=== PATIENT | male | born 1955 | race Caucasian/White ===

== ENCOUNTER → 2016-03-17 | Outpatient (REF) | payer MEDICARE ==
[~2016-03-17] MED LIST: /WARF25TA PO; ASCO25TA PO; BACITAB3 PO; BACL-67 PO; BACL10TA2 PO; CALCTAB28 PO; CEFT500T PO; CEPA5.4L2 MT; CEPALOZ MT; CYPR4TA PO; DIAZ2TAB PO; DICL13PA TD; DOCU10CA PO; DULC5TAB PO; ELIQ5TAB PO; EUCECRE3 TOP; FAMO20TA PO; FE G325T PO; FERR325T3 PO; FIBE625T PO; FLOM5CAP PO; FURO40TA2 PO; GABA-283 PO; HEPA100PFS INJ; IBUP600T26 PO; KEFL500C7 PO; LEXA1TAB PO; LISI-542 PO; LOVE1INJ SC; MAGN500T6 PO; MERO1INJ IV; MSIR30TA PO; OXYC20TA21 PO; PANT40TA2 PO; PERC5TAB PO; PERCOCET PO; PRED20TA PO; PROS5TAB PO; ROCE1INJ4 IV; ROXI1TAB2 PO; SENN-23 PO; SENN8.6C PO; SENO8.6T2 PO; SODI0.9S IV; TRIA25CR TOP; TYLE325T5 PO; VALI5TAB PO; VANC1INJ IV; VITMTA PO; ZANA4TAB PO; ZOFR4TAB3 PO; [UNRECOGNIZED DRUG - CODE] IV; [UNRECOGNIZED DRUG - CODE] IVFLUSH; [UNRECOGNIZED DRUG - CODE] PO; [UNRECOGNIZED DRUG - CODE] PO; [UNRECOGNIZED DRUG - OTHER] PO
[2016-03-17 10:11] LABS: BASO % 0.6 % (0.0-1.0); EOS # 0.2 K/mm3 (0.0-0.50); EOS % 1.8 % (0.0-3.0); LARGE UNSTAINED CELL # 0.3 K/mm3 (0.0-0.4); LYMPH % 20.3 % (24.0-44.0); MEAN CORPUSCULAR HEMOGLOBIN 30.6 pg (27.0-33.0); MEAN CORPUSCULAR HGB CONC 34.9 g/dl (32.0-36.5); MEAN CORPUSCULAR VOLUME 87.5 fl (80.0-96.0); MONO # 0.5 K/mm3 (0.0-0.8); MONO % 6.4 % (0.0-5.0); NEUTROPHILS # 5.6 K/mm3 (1.8-7.7); NEUTROPHILS % 66.8 % (36.0-66.0); PLATELET COUNT, AUTOMATED 217 k/mm3 (150-450); RED CELL DISTRIBUTION WIDTH 13.8 % (11.5-14.5); WHITE BLOOD COUNT 8.4 K/mm3 (4.0-10.0)
[2016-03-17 11:11] LABS: ERYTHROCYTE SEDIMENTATION RATE 41 mm/hr (0-20)
== END ==
LOC: SKLABADC 08:53
PROVIDERS: ATTEND Physician Assistant Medical
DX: M25.552 Pain in left hip (principal); E78.2 Mixed hyperlipidemia; N18.3 Chronic kidney disease, stage 3 (moderate); I12.9 Hypertensive chronic kidney disease with stage 1 through stage 4 chronic kidney disease, or unspecified chronic kidney disease; D50.9 Iron deficiency anemia, unspecified; E55.9 Vitamin D deficiency, unspecified

== ENCOUNTER → 2016-03-27 | Outpatient (REF) | payer MEDICARE ==
[2016-03-27 12:04] LABS: ALBUMIN 3.6 GM/DL (3.2-5.2); ALBUMIN/GLOBULIN RATIO 0.78 (1.00-1.93); ALKALINE PHOSPHATASE 117 U/L (45-117); ALT/SGPT 37 U/L (12-78); ANION GAP 7 MEQ/L (8-16); AST/SGOT 19 U/L (15-37); BILIRUBIN,TOTAL 0.5 MG/DL (0.2-1.0); BLOOD UREA NITROGEN 21 MG/DL (7-18); CALCIUM LEVEL 9.1 MG/DL (8.8-10.2); CARBON DIOXIDE LEVEL 26 MEQ/L (21-32); CHLORIDE LEVEL 105 MEQ/L (98-107); CREATININE FOR GFR 1.06 MG/DL (0.70-1.30); GLOMERULAR FILTRATION RATE > 60.0 (>49); GLUCOSE, FASTING 96 MG/DL (80-110); POTASSIUM SERUM 4.3 MEQ/L (3.5-5.1); SODIUM LEVEL 138 MEQ/L (136-145); TOTAL PROTEIN 8.2 GM/DL (6.4-8.2)
== END ==
LOC: SKLABADC 10:23
PROVIDERS: ATTEND Physician Assistant Medical
DX: N18.3 Chronic kidney disease, stage 3 (moderate) (principal)

== ENCOUNTER → 2016-04-01 | Outpatient (CLI) | payer MEDICARE ==
[~2016-04-01] MED LIST changes: -CEFT500T PO; +CEFT500T3 PO; +CEPA1LOZ5 MT; -CEPALOZ MT
== END ==
LOC: M RAD 13:31
PROVIDERS: ATTEND Physician Assistant Medical
DX: M25.552 Pain in left hip (principal)

== ENCOUNTER → 2016-07-25 | Outpatient (REF) | payer MEDICARE, MEDICAID ==
[~2016-07-25] MED LIST changes: +ATOR1TAB21; +CLEO300C2 PO; +VITA200015; +[UNRECOGNIZED DRUG - CODE] IV; -[UNRECOGNIZED DRUG - CODE] IV
[2016-07-25 13:11] LABS: BASO # 0.1 K/mm3 (0.0-0.2); EOS # 0.2 K/mm3 (0.0-0.50); EOS % 2.5 % (0.0-3.0); LARGE UNSTAINED CELL # 0.3 K/mm3 (0.0-0.4); LARGE UNSTAINED CELL % 4.5 % (0.0-4.0); LYMPH # 1.8 K/mm3 (1.5-4.5); LYMPH % 21.2 % (24.0-44.0); MEAN CORPUSCULAR HEMOGLOBIN 30.6 pg (27.0-33.0); MEAN CORPUSCULAR HGB CONC 34.4 g/dl (32.0-36.5); MONO # 0.8 K/mm3 (0.0-0.8); MONO % 10.8 % (0.0-5.0); NEUTROPHILS # 4.2 K/mm3 (1.8-7.7); PLATELET COUNT, AUTOMATED 227 k/mm3 (150-450); RED CELL DISTRIBUTION WIDTH 13.5 % (11.5-14.5)
[2016-07-25 13:42] LABS: VITAMIN B12 LEVEL 867 PG/ML (247-911)
[2016-07-25 13:48] LABS: ALBUMIN 3.6 GM/DL (3.2-5.2); ALKALINE PHOSPHATASE 107 U/L (45-117); ALT/SGPT 41 U/L (12-78); ANION GAP 8 MEQ/L (8-16); AST/SGOT 24 U/L (15-37); BILIRUBIN,TOTAL 0.6 MG/DL (0.2-1.0); BLOOD UREA NITROGEN 24 MG/DL (7-18); CALCIUM LEVEL 8.7 MG/DL (8.8-10.2); CARBON DIOXIDE LEVEL 26 MEQ/L (21-32); CHLORIDE LEVEL 104 MEQ/L (98-107); CHOLESTEROL LEVEL 126 MG/DL (<200); CREATININE FOR GFR 1.07 MG/DL (0.70-1.30); GLOMERULAR FILTRATION RATE > 60.0 (>49); GLUCOSE, FASTING 94 MG/DL (80-110); MAGNESIUM LEVEL 2.3 MG/DL (1.8-2.4); POTASSIUM SERUM 4.1 MEQ/L (3.5-5.1); SODIUM LEVEL 138 MEQ/L (136-145); TOTAL PROTEIN 8.1 GM/DL (6.4-8.2); TRIGLYCERIDES LEVEL 109 MG/DL (<150)
== END ==
LOC: M SFHCPLAZ 10:57
PROVIDERS: ATTEND Family Medicine
DX: N18.3 Chronic kidney disease, stage 3 (moderate) (principal); E78.2 Mixed hyperlipidemia; E55.9 Vitamin D deficiency, unspecified; N40.1 Benign prostatic hyperplasia with lower urinary tract symptoms; N31.9 Neuromuscular dysfunction of bladder, unspecified; R33.9 Retention of urine, unspecified
CPT/HCPCS: 36415; 80053; 80061; 82306; 82550; 82607; 83735; 83970; 85025; G0103; G0463

== ENCOUNTER 2016-08-09 12:59 | Emergency (ER) | payer MEDICARE, MEDICAID ==
[~2016-08-09] VITALS: Ht 177.8 cm; Wt 134.3 kg
[~2016-08-09 12:59] MED LIST changes: -ATOR1TAB21; -CLEO300C2 PO; -VITA200015
[2016-08-09 13:00] VITALS: BP 122/77
[2016-08-09] MEDS ORDERED: VITA200015 (13:10)
[2016-08-09] MEDS ORDERED: ATOR1TAB21 (13:10)
[2016-08-09] MEDS ORDERED: CLEO300C2 PO (13:23)
== END 2016-08-09 13:49 | disposition home or self-care (01) ==
LOC: M ED 13:29
DX: L03.116 Cellulitis of left lower limb (principal); G43.909 Migraine, unspecified, not intractable, without status migrainosus; Z87.891 Personal history of nicotine dependence; Z88.5 Allergy status to narcotic agent; Z79.899 Other long term (current) drug therapy; Z79.01 Long term (current) use of anticoagulants

== ENCOUNTER 2016-10-16 09:18 | Emergency (ER) | payer MEDICARE, MEDICAID ==
[~2016-10-16] VITALS: Ht 177.8 cm; Wt 136.8 kg
[~2016-10-16 09:18] MED LIST changes: +ATOR1TAB21; +BACITAB PO; -BACITAB3 PO; -BACL-67 PO; +BACL1TAB9 PO; +CLEO300C2 PO; +IBUP-1022 PO; -IBUP600T26 PO; +KEFL500C17 PO; -KEFL500C7 PO; -OXYC20TA21 PO; +OXYC20TA40 PO; -SENO8.6T2 PO; +SENO8.6T5 PO; +VITA200015
[2016-10-16] MEDS ORDERED: FERR1TAB8 (09:30)
[2016-10-16] MEDS ORDERED: DIAZ5TAB (09:30)
--- NOTE | 2016-10-16 11:07 | REP ---
Scrotal ultrasound: 10/16/2016. Clinical history: Pain and swelling right testis. Evaluate for torsion. Findings: No prior study. Sonographic evaluation shows the right testis 3 x 2.7 x 2.1 cm with a calculated volume of 9 mL. Left testis 3.6 x 2.4 x 2.4 cm with a calculated volume of 11 mL . Within the right testis is a 9 x 7 x 7 mm cyst. There is some scattered echogenic foci representing testicular microlithiasis with a small cluster of calcifications. The left testis shows a septated cyst 7 x 4 x 3 mm and adjacent to it is another cyst 4 x 3 x 3 mm. There are scattered testicular echogenic foci representing microlithiasis. There is another cluster of microcalcifications in the mid portion of that left testis. Epididymal head has a mL diameter of 28 mm on the right with epididymal head cyst measuring 9 and 7 mm and appearance of some hyperemia. The left epididymal head has a mL diameter of 14 mm with 4 mm epididymal head cyst. The epididymis, body and tail is also enlarged on both sides and heterogeneous in echogenicity some increased color within. Doppler shows resistive index of 0.55 on the right and 0.37 on the left. No definite hydrocele or varicocele. Impression: 1. Findings most consistent with bilateral epididymitis with epididymal cysts seen on the right, 9 and 7 mm size and on the left at 4 mm size in each epididymal head respectively. 2. No evidence of torsion with Doppler tracing showing normal flow to each testis nor evidence of hydrocele. No varicocele. 3. Testicular microlithiasis is noted. The testicular cysts are seen. There has been some association of testicular microlithiasis with increased risk for testicular malignancy. Follow-up ultrasound in 6-12 months would be recommended. Signed by Josh Conte MD 10/16/2016 06:28 P
[2016-10-16] MEDS ORDERED: PERCOCET 5MG/325MG TAB PO ONE (11:15)
[2016-10-16] MEDS ORDERED: ONDANSETRON 4 MG ORAL DISINTEGRATING TAB (S0181) PO ONE (12:15)
[2016-10-16 12:27] LABS: MEAN CORPUSCULAR HEMOGLOBIN 31.2 pg (27.0-33.0); MEAN CORPUSCULAR HGB CONC 35.3 g/dl (32.0-36.5); MEAN CORPUSCULAR VOLUME 88.5 fl (80.0-96.0); RED CELL DISTRIBUTION WIDTH 13.4 % (11.5-14.5); WHITE BLOOD COUNT 14.2 K/mm3 (4.0-10.0)
[2016-10-16 12:51] LABS: ANION GAP 10 MEQ/L (8-16); BLOOD UREA NITROGEN 19 MG/DL (7-18); CALCIUM LEVEL 9.3 MG/DL (8.8-10.2); CARBON DIOXIDE LEVEL 24 MEQ/L (21-32); CHLORIDE LEVEL 103 MEQ/L (98-107); CREATININE FOR GFR 1.02 MG/DL (0.70-1.30); GLOMERULAR FILTRATION RATE > 60.0 (>49); GLUCOSE, FASTING 98 MG/DL (80-110); POTASSIUM SERUM 4.2 MEQ/L (3.5-5.1); SODIUM LEVEL 137 MEQ/L (136-145)
[2016-10-16 13:03] VITALS: BP 156/82
[2016-10-16] MEDS ORDERED: CIPROFLOXACIN 500 MG TAB PO ONE (13:30)
[2016-10-16] MEDS ORDERED: PERC5TAB12 PO (13:32)
[2016-10-16] MEDS ORDERED: CIPR-249 PO (13:33)
== END 2016-10-16 13:40 | disposition home or self-care (01) ==
LOC: M ED 09:18
DX: N45.1 Epididymitis (principal); N50.3 Cyst of epididymis; B96.29 Other Escherichia coli [E. coli] as the cause of diseases classified elsewhere; I25.10 Atherosclerotic heart disease of native coronary artery without angina pectoris; I10 Essential (primary) hypertension; E78.00 Pure hypercholesterolemia, unspecified; G43.909 Migraine, unspecified, not intractable, without status migrainosus; G82.20 Paraplegia, unspecified; Z79.899 Other long term (current) drug therapy; Z88.5 Allergy status to narcotic agent

== ENCOUNTER → 2016-11-14 | Outpatient (REF) | payer MEDICARE, MEDICAID ==
[~2016-11-14] MED LIST changes: +CIPR-249 PO; +DIAZ5TAB; +FERR1TAB8; +PERC5TAB12 PO
== END ==
LOC: M SMT 10:37
PROVIDERS: ATTEND Nurse Practitioner Women's Health
DX: N39.0 Urinary tract infection, site not specified (principal)
CPT/HCPCS: 51798; 81001; 87086; G0463

== ENCOUNTER → 2016-11-18 | Outpatient (REF) | payer MEDICARE, MEDICAID ==
[2016-11-18 10:55] LABS: BASO % 0.4 % (0.0-1.0); EOS # 0.1 K/mm3 (0.0-0.50); EOS % 2.1 % (0.0-3.0); LARGE UNSTAINED CELL # 0.3 K/mm3 (0.0-0.4); LARGE UNSTAINED CELL % 4.2 % (0.0-4.0); LYMPH # 1.9 K/mm3 (1.5-4.5); LYMPH % 26.8 % (24.0-44.0); MEAN CORPUSCULAR HEMOGLOBIN 32.7 pg (27.0-33.0); MEAN CORPUSCULAR VOLUME 88.3 fl (80.0-96.0); MONO # 0.5 K/mm3 (0.0-0.8); MONO % 8.7 % (0.0-5.0); NEUTROPHILS # 3.5 K/mm3 (1.8-7.7); NEUTROPHILS % 57.9 % (36.0-66.0); PLATELET COUNT, AUTOMATED 156 k/mm3 (150-450); RED CELL DISTRIBUTION WIDTH 17.1 % (11.5-14.5)
[2016-11-18 10:56] LABS: MEAN CORPUSCULAR HGB CONC 37.1 g/dl (32.0-36.5)
[2016-11-18 11:21] LABS: ALBUMIN 3.5 GM/DL (3.2-5.2); ALBUMIN/GLOBULIN RATIO 0.69 (1.00-1.93); ALKALINE PHOSPHATASE 102 U/L (45-117); ALT/SGPT 33 U/L (12-78); ANION GAP 10 MEQ/L (8-16); AST/SGOT 18 U/L (15-37); BILIRUBIN,TOTAL 0.6 MG/DL (0.2-1.0); BLOOD UREA NITROGEN 18 MG/DL (7-18); CALCIUM LEVEL 8.7 MG/DL (8.8-10.2); CARBON DIOXIDE LEVEL 25 MEQ/L (21-32); CHLORIDE LEVEL 106 MEQ/L (98-107); CHOLESTEROL LEVEL 138 MG/DL (<200); CREATININE FOR GFR 0.95 MG/DL (0.70-1.30); GLOMERULAR FILTRATION RATE > 60.0 (>49); GLUCOSE, FASTING 89 MG/DL (80-110); MAGNESIUM LEVEL 2.2 MG/DL (1.8-2.4); POTASSIUM SERUM 4.6 MEQ/L (3.5-5.1); SODIUM LEVEL 141 MEQ/L (136-145); TOTAL PROTEIN 8.6 GM/DL (6.4-8.2); TRIGLYCERIDES LEVEL 123 MG/DL (<150)
[2016-11-18 12:44] LABS: VITAMIN B12 LEVEL 718 PG/ML (247-911)
== END ==
LOC: SKLABADC 09:05
PROVIDERS: ATTEND Family Medicine
DX: N18.3 Chronic kidney disease, stage 3 (moderate) (principal); E78.2 Mixed hyperlipidemia; E55.9 Vitamin D deficiency, unspecified; N40.1 Benign prostatic hyperplasia with lower urinary tract symptoms

== ENCOUNTER → 2017-03-19 | Outpatient (REF) | payer MEDICARE, MEDICAID ==
[2017-03-19 10:48] LABS: BASO % 0.4 % (0.0-1.0); EOS # 0.2 10^3/uL (0.0-0.50); EOS % 2.5 % (0.0-3.0); HEMATOCRIT 39.7 % (42.0-52.0); HEMOGLOBIN 14.3 g/dl (14.0-18.0); IMMATURE GRANULOCYTE % 0.4 % (0-0); LYMPH # 1.9 10^3/uL (1.5-4.5); LYMPH % 24.2 % (24.0-44.0); MEAN CORPUSCULAR HEMOGLOBIN 32.5 pg (27.0-33.0); MEAN CORPUSCULAR VOLUME 90.2 fl (80.0-96.0); MONO # 0.5 10^3/uL (0.0-0.8); MONO % 6.9 % (0.0-5.0); NEUTROPHILS # 5.1 10^3/uL (1.8-7.7); NEUTROPHILS % 65.6 % (36.0-66.0); PLATELET COUNT, AUTOMATED 206 10^3/uL (150-450); RED CELL DISTRIBUTION WIDTH 13.2 % (11.5-14.5); WHITE BLOOD COUNT 7.7 10^3/uL (4.0-10.0)
[2017-03-19 11:17] LABS: ALBUMIN 3.5 GM/DL (3.2-5.2); ALBUMIN/GLOBULIN RATIO 0.69 (1.00-1.93); ALKALINE PHOSPHATASE 104 U/L (45-117); ALT/SGPT 37 U/L (12-78); ANION GAP 6 MEQ/L (8-16); AST/SGOT 20 U/L (7-37); BILIRUBIN,TOTAL 0.6 MG/DL (0.2-1.0); BLOOD UREA NITROGEN 21 MG/DL (7-18); CALCIUM LEVEL 8.8 MG/DL (8.8-10.2); CARBON DIOXIDE LEVEL 26 MEQ/L (21-32); CHLORIDE LEVEL 104 MEQ/L (98-107); CREATININE FOR GFR 1.05 MG/DL (0.70-1.30); ESTIMATED AVERAGE GLUCOSE 108 MG/DL (60-110); FERRITIN 143 NG/ML (26-388); FREE T4 0.97 NG/DL (0.76-1.46); GLOMERULAR FILTRATION RATE > 60.0 (>49); GLUCOSE, FASTING 135 MG/DL (80-110); HEMOGLOBIN A1c 5.4 %; IRON (FE) 74 UG/DL (65-175); PERCENT SATURATION 26.4 % (19.7-50.0); POTASSIUM SERUM 4.5 MEQ/L (3.5-5.1); SODIUM LEVEL 136 MEQ/L (136-145); TOTAL IRON BINDING CAPACITY 280 UG/DL (250-450); TOTAL PROTEIN 8.6 GM/DL (6.4-8.2)
[2017-03-20 11:54] LABS: HEPATITIS C VIRUS ABY INDEX 0.2 INDEX (<0.8)
== END ==
LOC: SKLABADC 09:28
DX: D50.9 Iron deficiency anemia, unspecified (principal); I10 Essential (primary) hypertension; N40.1 Benign prostatic hyperplasia with lower urinary tract symptoms
CPT/HCPCS: 83550

== ENCOUNTER → 2017-04-28 | Outpatient (CLI) | payer MEDICARE, MEDICAID | LOC: M RAD 13:03 | DX: N44.2 Benign cyst of testis (principal); N50.89 Other specified disorders of the male genital organs; N45.1 Epididymitis | CPT/HCPCS: 76870 ==

== ENCOUNTER → 2017-07-17 | Outpatient (REF) | payer MEDICARE, MEDICAID ==
[2017-07-17 10:44] LABS: BASO % 0.5 % (0.0-1.0); EOS # 0.2 10^3/uL (0.0-0.50); EOS % 2.8 % (0.0-3.0); HEMATOCRIT 41.1 % (42.0-52.0); HEMOGLOBIN 14.3 g/dl (13.5-17.5); IMMATURE GRANULOCYTE % 0.4 % (0-3.0); LYMPH # 1.8 10^3/uL (1.5-4.5); LYMPH % 23.2 % (24.0-44.0); MEAN CORPUSCULAR HEMOGLOBIN 31.1 pg (27.0-33.0); MEAN CORPUSCULAR HGB CONC 34.8 g/dl (32.0-36.5); MEAN CORPUSCULAR VOLUME 89.3 fl (80.0-96.0); MONO % 12.4 % (0.0-5.0); NEUTROPHILS # 4.8 10^3/uL (1.8-7.7); NEUTROPHILS % 60.7 % (36.0-66.0); PLATELET COUNT, AUTOMATED 205 10^3/uL (150-450); RED CELL DISTRIBUTION WIDTH 13.2 % (11.5-14.5); RETIC HEMOGLOBIN EQUIVALENT 34.9 pg (24-36); RETICULOCYTE # 44.2 10^9/L (17-77); WHITE BLOOD COUNT 7.8 10^3/uL (4.0-10.0)
[2017-07-17 11:14] LABS: ALBUMIN 3.8 GM/DL (3.2-5.2); ALBUMIN/GLOBULIN RATIO 0.75 (1.00-1.93); ALKALINE PHOSPHATASE 111 U/L (45-117); ALT/SGPT 46 U/L (12-78); ANION GAP 7 MEQ/L (8-16); AST/SGOT 22 U/L (7-37); BILIRUBIN,TOTAL 0.6 MG/DL (0.2-1.0); BLOOD UREA NITROGEN 21 MG/DL (7-18); C REACTIVE PROTEIN QUANTITATIV 0.34 MG/DL (0.00-0.30); CALCIUM LEVEL 9.2 MG/DL (8.8-10.2); CARBON DIOXIDE LEVEL 27 MEQ/L (21-32); CHLORIDE LEVEL 104 MEQ/L (98-107); CHOLESTEROL LEVEL 135 MG/DL (<200); CHOLESTEROL RISK RATIO 3.857 (<5); CPK CREATINE PHOSPHOKINASE 82 U/L (39-308); CREATININE FOR GFR 1.05 MG/DL (0.70-1.30); GLOMERULAR FILTRATION RATE > 60.0 (>49); GLUCOSE, FASTING 93 MG/DL (70-100); HDL CHOLESTEROL 35 MG/DL (>40); LDL CHOLESTEROL 81.2 MG/DL (<100); MAGNESIUM LEVEL 2.3 MG/DL (1.8-2.4); NON-HDL-C 100 MG/DL; POTASSIUM SERUM 4.6 MEQ/L (3.5-5.1); SODIUM LEVEL 138 MEQ/L (136-145); TOTAL PROTEIN 8.9 GM/DL (6.4-8.2); TRIGLYCERIDES LEVEL 94 MG/DL (<150)
== END ==
LOC: SKLABADC 09:07
DX: D50.9 Iron deficiency anemia, unspecified (principal); E78.2 Mixed hyperlipidemia; I10 Essential (primary) hypertension
CPT/HCPCS: 82550

== ENCOUNTER → 2017-11-20 | Outpatient (REF) | payer MEDICARE, MEDICAID ==
[2017-11-20 12:16] LABS: BASO % 0.4 % (0.0-1.0); EOS # 0.3 10^3/uL (0.0-0.50); EOS % 3.2 % (0.0-3.0); HEMATOCRIT 42.4 % (42.0-52.0); HEMOGLOBIN 14.5 g/dl (13.5-17.5); IMMATURE GRANULOCYTE % 0.5 % (0-3.0); LYMPH # 1.9 10^3/uL (1.5-4.5); LYMPH % 22.8 % (24.0-44.0); MEAN CORPUSCULAR HEMOGLOBIN 30.9 pg (27.0-33.0); MEAN CORPUSCULAR HGB CONC 34.2 g/dl (32.0-36.5); MEAN CORPUSCULAR VOLUME 90.4 fl (80.0-96.0); MONO # 0.9 10^3/uL (0.0-0.8); MONO % 10.3 % (0.0-5.0); NEUTROPHILS # 5.4 10^3/uL (1.8-7.7); NEUTROPHILS % 62.8 % (36.0-66.0); PLATELET COUNT, AUTOMATED 167 10^3/uL (150-450); RED BLOOD COUNT 4.69 10^6/uL (4.30-6.10); RED CELL DISTRIBUTION WIDTH 13.3 % (11.5-14.5); WHITE BLOOD COUNT 8.5 10^3/uL (4.0-10.0)
[2017-11-20 12:54] LABS: TOTAL 25(OH) VITAMIN D 45.7 NG/ML (30.0-100.0)
[2017-11-20 12:55] LABS: PTH INTACT 46.7 PG/ML (18.5-88.0)
[2017-11-20 12:59] LABS: ALBUMIN 3.6 GM/DL (3.2-5.2); ALBUMIN/GLOBULIN RATIO 0.72 (1.00-1.93); ALKALINE PHOSPHATASE 109 U/L (45-117); ALT/SGPT 39 U/L (12-78); ANION GAP 8 MEQ/L (8-16); AST/SGOT 21 U/L (7-37); BILIRUBIN,TOTAL 0.6 MG/DL (0.2-1.0); BLOOD UREA NITROGEN 22 MG/DL (7-18); CALCIUM LEVEL 8.8 MG/DL (8.8-10.2); CARBON DIOXIDE LEVEL 24 MEQ/L (21-32); CHLORIDE LEVEL 107 MEQ/L (98-107); CREATININE FOR GFR 0.98 MG/DL (0.70-1.30); FREE T4 0.93 NG/DL (0.76-1.46); GLOMERULAR FILTRATION RATE > 60.0 (>49); GLUCOSE, FASTING 80 MG/DL (70-100); POTASSIUM SERUM 4.4 MEQ/L (3.5-5.1); PROSTATIC SPECIFIC AG MONITOR 0.25 NG/ML (< 4.0); SODIUM LEVEL 139 MEQ/L (136-145); TOTAL PROTEIN 8.6 GM/DL (6.4-8.2)
== END ==
LOC: SKLABADC 08:07
DX: D50.9 Iron deficiency anemia, unspecified (principal); E55.9 Vitamin D deficiency, unspecified; E78.2 Mixed hyperlipidemia; N40.1 Benign prostatic hyperplasia with lower urinary tract symptoms
CPT/HCPCS: 84443

== ENCOUNTER → 2018-03-31 | Outpatient (REF) | payer MEDICARE, MEDICAID ==
[~2018-03-31] MED LIST changes: +FLOM0.4C39 PO; -FLOM5CAP PO; -GABA-283 PO; +GABA-845 PO; -PANT40TA2 PO; +PANT40TA3 PO; -ROCE1INJ4 IV; +ROCE1INJ6 IV; +ZOFR4TAB14 PO; -ZOFR4TAB3 PO
[2018-03-31 10:12] LABS: BASO % 0.4 % (0.0-1.0); EOS # 0.2 10^3/uL (0.0-0.50); EOS % 2.6 % (0.0-3.0); HEMATOCRIT 40.9 % (42.0-52.0); LYMPH # 1.8 10^3/uL (1.5-4.5); LYMPH % 24.9 % (24.0-44.0); MEAN CORPUSCULAR HEMOGLOBIN 30.4 pg (27.0-33.0); MEAN CORPUSCULAR VOLUME 88.9 fl (80.0-96.0); NEUTROPHILS # 4.3 10^3/uL (1.8-7.7); NEUTROPHILS % 58.6 % (36.0-66.0); PLATELET COUNT, AUTOMATED 200 10^3/uL (150-450); WHITE BLOOD COUNT 7.3 10^3/uL (4.0-10.0)
[2018-03-31 10:22] LABS: MEAN CORPUSCULAR HGB CONC 34.2 g/dl (32.0-36.5)
[2018-03-31 10:26] LABS: ALBUMIN 3.6 GM/DL (3.2-5.2); ALT/SGPT 35 U/L (12-78); BILIRUBIN,TOTAL 0.5 MG/DL (0.2-1.0); BLOOD UREA NITROGEN 19 MG/DL (7-18); CALCIUM LEVEL 8.9 MG/DL (8.8-10.2); CARBON DIOXIDE LEVEL 26 MEQ/L (21-32); CHLORIDE LEVEL 103 MEQ/L (98-107); CREATININE FOR GFR 0.98 MG/DL (0.70-1.30); FREE T4 1.04 NG/DL (0.76-1.46); GLOMERULAR FILTRATION RATE > 60.0 (>49); GLUCOSE, FASTING 91 MG/DL (70-100); POTASSIUM SERUM 4.3 MEQ/L (3.5-5.1); PROSTATIC SPECIFIC AG MONITOR 0.21 NG/ML (< 4.00); SODIUM LEVEL 137 MEQ/L (136-145); TOTAL PROTEIN 8.4 GM/DL (6.4-8.2)
[2018-03-31 10:37] LABS: PTH INTACT 50.4 PG/ML (18.5-88.0); TOTAL 25(OH) VITAMIN D 40.7 NG/ML (30.0-100.0)
== END ==
LOC: SKLABADC 08:47
PROVIDERS: ATTEND Family Medicine
DX: D50.9 Iron deficiency anemia, unspecified (principal); E55.9 Vitamin D deficiency, unspecified; E78.2 Mixed hyperlipidemia; N40.1 Benign prostatic hyperplasia with lower urinary tract symptoms

== ENCOUNTER → 2018-09-02 | Outpatient (REF) | payer MEDICARE, MEDICAID ==
[~2018-09-02] MED LIST changes: -/WARF25TA PO; -ASCO25TA PO; +BACT800T5 PO; -CEPA1LOZ5 MT; +CEPALOZ8 MT; +COUM1TAB18 PO; -CYPR4TA PO; +CYPR4TAB PO; +IRBE150T12 PO; +VITA1TAB23 PO; +VITA2000 PO
[2018-09-02 15:56] LABS: BASO % 0.4 % (0.0-1.0); EOS # 0.2 10^3/uL (0.0-0.50); EOS % 2.4 % (0.0-3.0); HEMATOCRIT 37.9 % (42.0-52.0); HEMOGLOBIN 13.4 g/dl (13.5-17.5); MEAN CORPUSCULAR HEMOGLOBIN 32.2 pg (27.0-33.0); MEAN CORPUSCULAR HGB CONC 35.4 g/dl (32.0-36.5); MEAN CORPUSCULAR VOLUME 91.1 fl (80.0-96.0); MONO # 1.3 10^3/uL (0.0-0.8); MONO % 16.6 % (0.0-5.0); NEUTROPHILS # 4.4 10^3/uL (1.8-7.7); NEUTROPHILS % 55.1 % (36.0-66.0); PLATELET COUNT, AUTOMATED 199 10^3/uL (150-450); RED BLOOD COUNT 4.16 10^6/uL (4.30-6.10); WHITE BLOOD COUNT 7.9 10^3/uL (4.0-10.0)
[2018-09-02 16:06] LABS: ALBUMIN 3.5 GM/DL (3.2-5.2); ALT/SGPT 34 U/L (12-78); BILIRUBIN,TOTAL 0.5 MG/DL (0.2-1.0); BLOOD UREA NITROGEN 21 MG/DL (7-18); CALCIUM LEVEL 8.9 MG/DL (8.8-10.2); CARBON DIOXIDE LEVEL 26 MEQ/L (21-32); CHLORIDE LEVEL 104 MEQ/L (98-107); CREATININE FOR GFR 1.02 MG/DL (0.70-1.30); GLOMERULAR FILTRATION RATE > 60.0 (>49); GLUCOSE, FASTING 89 MG/DL (70-100); MAGNESIUM LEVEL 2.4 MG/DL (1.8-2.4); NT-PRO BNP 44 PG/ML (<125); POTASSIUM SERUM 4.3 MEQ/L (3.5-5.1); SODIUM LEVEL 135 MEQ/L (136-145); TOTAL PROTEIN 8.4 GM/DL (6.4-8.2)
[2018-09-02 16:12] LABS: VITAMIN B12 LEVEL 941 PG/ML (247-911)
[2018-09-02 16:14] LABS: HEMOGLOBIN A1c 5.6 %
== END ==
LOC: M SFHCPLAZ 13:22
PROVIDERS: ATTEND Family Medicine
DX: I50.30 Unspecified diastolic (congestive) heart failure (principal); I11.0 Hypertensive heart disease with heart failure; D50.9 Iron deficiency anemia, unspecified
CPT/HCPCS: 36415; 80053; 82607; 83036; 83735; 83880; 85025; 85046; G0463

== ENCOUNTER → 2019-02-15 | Outpatient (REF) | payer MEDICARE, MEDICAID ==
[2019-02-15 16:09] LABS: ALBUMIN 3.6 GM/DL (3.2-5.2); ALT/SGPT 41 U/L (12-78); BILIRUBIN,TOTAL 0.6 MG/DL (0.2-1.0); BLOOD UREA NITROGEN 21 MG/DL (7-18); C REACTIVE PROTEIN QUANTITATIV 0.55 MG/DL (0.00-0.30); CALCIUM LEVEL 8.8 MG/DL (8.8-10.2); CARBON DIOXIDE LEVEL 27 MEQ/L (21-32); CHLORIDE LEVEL 105 MEQ/L (98-107); CHOLESTEROL LEVEL 141 MG/DL (<200); CHOLESTEROL RISK RATIO 3.615 (<5); CPK CREATINE PHOSPHOKINASE 84 U/L (39-308); CREATININE FOR GFR 0.94 MG/DL (0.70-1.30); GLOMERULAR FILTRATION RATE > 60.0 (>49); GLUCOSE, FASTING 81 MG/DL (70-100); HDL CHOLESTEROL 39 MG/DL (>40); LDL CHOLESTEROL 83 MG/DL (<100); NON-HDL-C 102 MG/DL; POTASSIUM SERUM 4.2 MEQ/L (3.5-5.1); SODIUM LEVEL 139 MEQ/L (136-145); TOTAL PROTEIN 8.5 GM/DL (6.4-8.2); TRIGLYCERIDES LEVEL 93 MG/DL (<150)
[2019-02-15 18:05] LABS: PTH INTACT 53.3 PG/ML (18.5-88.0); TOTAL 25(OH) VITAMIN D 42.5 NG/ML (30.0-100.0)
[2019-02-17 12:04] LABS: ALBUMIN 4.15 GM/DL (3.29-5.55); ALBUMIN % 48.8 % (55.8-66.1); ALPHA-1-GLOBULIN % 3.5 % (2.9-4.9); ALPHA-2-GLOBULINS 0.67 GM/DL (0.42-0.99); ALPHA-2-GLOBULINS % 7.9 % (7.1-11.8); BETA-1-GLOBULINS 0.47 GM/DL (0.28-0.60); BETA-1-GLOBULINS % 5.5 % (4.7-7.2); BETA-2-GLOBULINS 0.54 GM/DL (0.19-0.55); BETA-2-GLOBULINS % 6.3 % (3.2-6.5); GAMMA GLOBULINS 2.38 GM/DL (0.65-1.58)
== END ==
LOC: M SFHCPLAZ 13:13
PROVIDERS: ATTEND Family Medicine
DX: E55.9 Vitamin D deficiency, unspecified (principal); N18.3 Chronic kidney disease, stage 3 (moderate); E78.2 Mixed hyperlipidemia; Z23 Encounter for immunization
CPT/HCPCS: 36415; 80053; 80061; 82306; 82550; 83525; 83970; 84165; 86140; 86335; 90682; G0008; G0463

== ENCOUNTER 2019-03-06 15:42 | Emergency (ER) | payer MEDICARE, MEDICAID ==
[~2019-03-06] VITALS: Ht 177.8 cm; Wt 139.6 kg
[~2019-03-06 15:42] MED LIST changes: -BACT800T5 PO; -IRBE150T12 PO; -VITA2000 PO
[2019-03-06] MEDS ORDERED: IRBE150T12 PO (15:53)
[2019-03-06] MEDS ORDERED: VITA2000 PO (15:53)
[2019-03-06 16:40] LABS: BASO % 0.5 % (0.0-1.0); EOS # 0.3 10^3/uL (0.0-0.5); EOS % 2.8 % (0.0-3.0); HEMATOCRIT 41.6 % (42.0-52.0); HEMOGLOBIN 13.9 g/dl (13.5-17.5); LYMPH # 2.4 10^3/uL (1.5-5.0); LYMPH % 27.6 % (24.0-44.0); MEAN CORPUSCULAR HEMOGLOBIN 30.2 pg (27.0-33.0); MEAN CORPUSCULAR HGB CONC 33.4 g/dl (32.0-36.5); MEAN CORPUSCULAR VOLUME 90.2 fl (80.0-96.0); MONO # 1.3 10^3/uL (0.0-0.8); MONO % 14.6 % (0.0-5.0); NEUTROPHILS # 4.8 10^3/uL (1.5-8.5); NEUTROPHILS % 53.9 % (36.0-66.0); PLATELET COUNT, AUTOMATED 217 10^3/uL (150-450); RED BLOOD COUNT 4.61 10^6/uL (4.30-6.10); WHITE BLOOD COUNT 8.8 10^3/uL (4.0-10.0)
[2019-03-06] MEDS ORDERED: BACTRIM 160MG/800MG DS TAB PO ONE (17:00)
[2019-03-06] MEDS ORDERED: BACT800T5 PO (17:01)
[2019-03-06 17:16] VITALS: BP 117/74
== END 2019-03-06 17:16 | disposition home or self-care (01) ==
LOC: M ED 15:42
DX: N30.90 Cystitis, unspecified without hematuria (principal); R31.0 Gross hematuria; I10 Essential (primary) hypertension; M54.9 Dorsalgia, unspecified; N40.0 Benign prostatic hyperplasia without lower urinary tract symptoms; Z88.5 Allergy status to narcotic agent; Z79.899 Other long term (current) drug therapy; Z79.01 Long term (current) use of anticoagulants

== ENCOUNTER → 2019-11-10 | Outpatient (CLI) | payer MEDICARE, MEDICAID ==
[~2019-11-10] MED LIST changes: +BACT800T5 PO; +IRBE150T7 PO; -MERO1INJ IV; +MERO1VIA3 IV; +PANT40TA29 PO; -PANT40TA3 PO; -VITA1TAB23 PO; +VITA200031 PO; +VITA250T20 PO
[2019-11-10 11:39] LABS: BASO % 0.4 % (0.0-1.0); EOS # 0.2 10^3/uL (0.0-0.5); EOS % 2.7 % (0.0-3.0); HEMATOCRIT 37.8 % (42.0-52.0); HEMOGLOBIN 13.8 g/dl (13.5-17.5); LYMPH # 1.6 10^3/uL (1.5-5.0); LYMPH % 23.1 % (24.0-44.0); MEAN CORPUSCULAR HEMOGLOBIN 33.4 pg (27.0-33.0); MEAN CORPUSCULAR HGB CONC 36.5 g/dl (32.0-36.5); MEAN CORPUSCULAR VOLUME 91.5 fl (80.0-96.0); MONO % 13.8 % (0.0-5.0); NEUTROPHILS # 4.2 10^3/uL (1.5-8.5); NEUTROPHILS % 59.6 % (36.0-66.0); PLATELET COUNT, AUTOMATED 193 10^3/uL (150-450); RED BLOOD COUNT 4.13 10^6/uL (4.30-6.10)
[2019-11-10 12:11] LABS: ALBUMIN 3.7 GM/DL (3.2-5.2); ALT/SGPT 35 U/L (12-78); BILIRUBIN,TOTAL 0.7 MG/DL (0.2-1.0); BLOOD UREA NITROGEN 19 MG/DL (7-18); CARBON DIOXIDE LEVEL 27 MEQ/L (21-32); CHLORIDE LEVEL 104 MEQ/L (98-107); CREATININE FOR GFR 1.02 MG/DL (0.70-1.30); FREE T4 0.93 NG/DL (0.76-1.46); GLOMERULAR FILTRATION RATE > 60.0 (>49); GLUCOSE, FASTING 95 MG/DL (70-100); POTASSIUM SERUM 4.2 MEQ/L (3.5-5.1); SODIUM LEVEL 136 MEQ/L (136-145); TOTAL PROTEIN 8.6 GM/DL (6.4-8.2)
[2019-11-10 12:25] LABS: HEMOGLOBIN A1c 5.6 %
== END ==
LOC: M LAB 10:26
PROVIDERS: ATTEND Family Medicine
DX: I50.30 Unspecified diastolic (congestive) heart failure (principal); D50.9 Iron deficiency anemia, unspecified

== ENCOUNTER → 2020-02-06 | Outpatient (CLI) | payer MEDICARE, MEDICAID ==
--- NOTE | 2020-02-06 14:56 | REP ---
INDICATION: HISTORY OF DVT OF LOWER EXTREMITY COMPARISON: 11/14/2014 TECHNIQUE: Brock scale and color Doppler evaluation of the right lower extremity using linear high frequency transducer. FINDINGS: Ultrasound examination of the right lower extremity deep venous structures from the common femoral vein to the popliteal vein demonstrates normal compressibility flow and wave patterns in response to respiration and augmentation. There is no evidence for deep venous thrombosis. IMPRESSION: No evidence for deep venous thrombosis of the right lower extremity. <Electronically signed by Jairon Mercer > 02/06/20 [id number]
== END ==
LOC: M RAD 14:03
PROVIDERS: ATTEND Family Medicine
DX: R90.0 Intracranial space-occupying lesion found on diagnostic imaging of central nervous system (principal); Z86.718 Personal history of other venous thrombosis and embolism

== ENCOUNTER → 2020-03-27 | Outpatient (REF) | payer MEDICARE, MEDICAID ==
[2020-03-27 14:29] LABS: BASO # 0.1 10^3/uL (0.0-0.2); BASO % 0.6 % (0.0-1.0); EOS # 0.2 10^3/uL (0.0-0.5); EOS % 2.2 % (0.0-3.0); HEMATOCRIT 41.9 % (42.0-52.0); HEMOGLOBIN 13.9 g/dl (13.5-17.5); LYMPH # 2.1 10^3/uL (1.5-5.0); LYMPH % 26.3 % (24.0-44.0); MEAN CORPUSCULAR HEMOGLOBIN 30.5 pg (27.0-33.0); MEAN CORPUSCULAR HGB CONC 33.2 g/dl (32.0-36.5); MEAN CORPUSCULAR VOLUME 92.1 fl (80.0-96.0); MONO # 1.1 10^3/uL (0.0-0.8); MONO % 13.8 % (0.0-5.0); NEUTROPHILS # 4.5 10^3/uL (1.5-8.5); NEUTROPHILS % 56.7 % (36.0-66.0); PLATELET COUNT, AUTOMATED 177 10^3/uL (150-450); RED BLOOD COUNT 4.55 10^6/uL (4.30-6.10); WHITE BLOOD COUNT 7.9 10^3/uL (4.0-10.0)
[2020-03-27 16:26] LABS: ALBUMIN 3.8 GM/DL (3.2-5.2); ALT/SGPT 36 U/L (12-78); BILIRUBIN,TOTAL 0.7 MG/DL (0.2-1.0); BLOOD UREA NITROGEN 19 MG/DL (7-18); CALCIUM LEVEL 9.2 MG/DL (8.8-10.2); CARBON DIOXIDE LEVEL 27 MEQ/L (21-32); CHLORIDE LEVEL 102 MEQ/L (98-107); CHOLESTEROL LEVEL 149 MG/DL (<200); CHOLESTEROL RISK RATIO 3.386 (<5); GLOMERULAR FILTRATION RATE > 60.0 (>49); GLUCOSE, FASTING 100 MG/DL (70-100); HDL CHOLESTEROL 44 MG/DL (>40); LDL CHOLESTEROL 88 MG/DL (<100); NON-HDL-C 105 MG/DL; NT-PRO BNP 64 PG/ML (<125); POTASSIUM SERUM 4.1 MEQ/L (3.5-5.1); SODIUM LEVEL 136 MEQ/L (136-145); TOTAL PROTEIN 8.5 GM/DL (6.4-8.2); TRIGLYCERIDES LEVEL 85 MG/DL (<150)
[2020-03-27 16:31] LABS: PTH INTACT 41.7 PG/ML (18.5-88.0); TOTAL 25(OH) VITAMIN D 34.3 NG/ML (30.0-100.0)
== END ==
LOC: M SFHCPLAZ 11:40
PROVIDERS: ATTEND Family Medicine
DX: E78.2 Mixed hyperlipidemia (principal); D50.9 Iron deficiency anemia, unspecified; E55.9 Vitamin D deficiency, unspecified; I50.30 Unspecified diastolic (congestive) heart failure; Z12.5 Encounter for screening for malignant neoplasm of prostate
CPT/HCPCS: 36415; 80053; 80061; 82306; 83880; 83970; 85025; 85046; G0103

== ENCOUNTER 2020-05-29 19:16 | Emergency (ER) | payer MEDICARE, MEDICAID ==
[~2020-05-29] VITALS: Ht 172.7 cm; Wt 146.0 kg
[~2020-05-29 19:16] MED LIST changes: -LISI-542 PO; +LISI-898 PO
[2020-05-29] MEDS ORDERED: CIPR-249 PO (20:50)
[2020-05-29 20:56] VITALS: BP 148/85
== END 2020-05-29 21:03 | disposition home or self-care (01) ==
LOC: M ED 19:16
DX: N39.0 Urinary tract infection, site not specified (principal); E78.5 Hyperlipidemia, unspecified; N40.1 Benign prostatic hyperplasia with lower urinary tract symptoms; I10 Essential (primary) hypertension; Z79.01 Long term (current) use of anticoagulants; Z88.6 Allergy status to analgesic agent

== ENCOUNTER 2020-07-17 12:07 | Emergency (ER) | payer MEDICARE, MEDICAID ==
[~2020-07-17] VITALS: Ht 177.8 cm; Wt 138.6 kg
[2020-07-17 14:20] VITALS: BP 164/88
== END 2020-07-17 14:21 | disposition home or self-care (01) ==
LOC: EDBD 12:07 → M ED 12:07
DX: S00.511A Abrasion of lip, initial encounter (principal); D68.32 Hemorrhagic disorder due to extrinsic circulating anticoagulants; W26.8XXA Contact with other sharp object(s), not elsewhere classified, initial encounter; Y92.9 Unspecified place or not applicable; Y93.9 Activity, unspecified; Y99.9 Unspecified external cause status; G43.909 Migraine, unspecified, not intractable, without status migrainosus; E78.00 Pure hypercholesterolemia, unspecified; I10 Essential (primary) hypertension; K21.9 Gastro-esophageal reflux disease without esophagitis; N40.0 Benign prostatic hyperplasia without lower urinary tract symptoms; M54.9 Dorsalgia, unspecified; E55.9 Vitamin D deficiency, unspecified; Z79.01 Long term (current) use of anticoagulants; Z79.899 Other long term (current) drug therapy; Z88.5 Allergy status to narcotic agent

== ENCOUNTER → 2020-07-26 | Outpatient (REF) | payer MEDICARE, MEDICAID ==
[~2020-07-26] MED LIST changes: +GABA-283 PO; -GABA-845 PO
[2020-07-26 15:56] LABS: HEMOGLOBIN A1c 5.5 %
[2020-07-26 16:05] LABS: BASO % 0.5 % (0.0-1.0); EOS # 0.2 10^3/uL (0.0-0.5); EOS % 2.2 % (0.0-3.0); HEMATOCRIT 42.5 % (42.0-52.0); HEMOGLOBIN 14.2 g/dl (13.5-17.5); LYMPH # 1.6 10^3/uL (1.5-5.0); LYMPH % 21.5 % (24.0-44.0); MEAN CORPUSCULAR HEMOGLOBIN 29.8 pg (27.0-33.0); MEAN CORPUSCULAR VOLUME 89.1 fl (80.0-96.0); NEUTROPHILS # 4.6 10^3/uL (1.5-8.5); NEUTROPHILS % 62.4 % (36.0-66.0); PLATELET COUNT, AUTOMATED 181 10^3/uL (150-450); RED BLOOD COUNT 4.77 10^6/uL (4.30-6.10); WHITE BLOOD COUNT 7.4 10^3/uL (4.0-10.0)
[2020-07-26 16:06] LABS: MEAN CORPUSCULAR HGB CONC 33.4 g/dl (32.0-36.5)
[2020-07-26 16:07] LABS: ALBUMIN 3.7 GM/DL (3.2-5.2); ALT/SGPT 25 U/L (12-78); BILIRUBIN,TOTAL 0.7 MG/DL (0.2-1.0); BLOOD UREA NITROGEN 18 MG/DL (7-18); CALCIUM LEVEL 9.3 MG/DL (8.8-10.2); CARBON DIOXIDE LEVEL 27 MEQ/L (21-32); CHLORIDE LEVEL 103 MEQ/L (98-107); CREATININE FOR GFR 0.99 MG/DL (0.70-1.30); FERRITIN 187 NG/ML (26-388); GLOMERULAR FILTRATION RATE > 60.0 (>49); GLUCOSE, FASTING 93 MG/DL (70-100); MAGNESIUM LEVEL 2.1 MG/DL (1.8-2.4); SODIUM LEVEL 137 MEQ/L (136-145); TOTAL PROTEIN 8.9 GM/DL (6.4-8.2)
== END ==
LOC: M SFHCPLAZ 12:46
PROVIDERS: ATTEND Family Medicine
DX: I11.0 Hypertensive heart disease with heart failure (principal); I50.30 Unspecified diastolic (congestive) heart failure; Z79.899 Other long term (current) drug therapy
CPT/HCPCS: 36415; 80053; 82728; 83036; 83525; 83735; 85025; G0463

== ENCOUNTER 2020-10-12 13:12 | Outpatient (RCR) | payer MEDICARE, MEDICAID | END 2020-10-13 | disposition still patient (30) | LOC: M PT 13:12 | PROVIDERS: ATTEND Family Medicine | DX: G82.22 Paraplegia, incomplete (principal) ==

== ENCOUNTER → 2020-12-26 | Outpatient (CLI) | payer MEDICARE, MEDICAID ==
[2020-12-26 18:08] LABS: HEMOGLOBIN A1c 5.3 %
[2020-12-26 18:20] LABS: BASO # 0.1 10^3/uL (0.0-0.2); BASO % 0.6 % (0.0-1.0); EOS # 0.3 10^3/uL (0.0-0.5); EOS % 3.4 % (0.0-3.0); HEMATOCRIT 40.1 % (42.0-52.0); HEMOGLOBIN 13.5 g/dl (13.5-17.5); LYMPH # 2.2 10^3/uL (1.5-5.0); LYMPH % 27.4 % (24.0-44.0); MEAN CORPUSCULAR HEMOGLOBIN 30.1 pg (27.0-33.0); MEAN CORPUSCULAR HGB CONC 33.7 g/dl (32.0-36.5); MEAN CORPUSCULAR VOLUME 89.3 fl (80.0-96.0); MONO % 12.2 % (2.0-8.0); NEUTROPHILS # 4.4 10^3/uL (1.5-8.5); NEUTROPHILS % 55.9 % (36.0-66.0); PLATELET COUNT, AUTOMATED 176 10^3/uL (150-450); RED BLOOD COUNT 4.49 10^6/uL (4.30-6.10); WHITE BLOOD COUNT 7.9 10^3/uL (4.0-10.0)
[2020-12-26 18:29] LABS: ALBUMIN 3.4 GM/DL (3.2-5.2); ALT/SGPT 22 U/L (12-78); BILIRUBIN,TOTAL 0.9 MG/DL (0.2-1.0); BLOOD UREA NITROGEN 18 MG/DL (7-18); CALCIUM LEVEL 8.9 MG/DL (8.8-10.2); CARBON DIOXIDE LEVEL 27 MEQ/L (21-32); CHLORIDE LEVEL 101 MEQ/L (98-107); CHOLESTEROL LEVEL 134 MG/DL (<200); CHOLESTEROL RISK RATIO 3.828 (<5); CREATININE FOR GFR 1.07 MG/DL (0.70-1.30); FERRITIN 238 NG/ML (26-388); FREE T4 1.01 NG/DL (0.76-1.46); GLOMERULAR FILTRATION RATE > 60.0 (>49); GLUCOSE, FASTING 88 MG/DL (70-100); HDL CHOLESTEROL 35 MG/DL (>40); LDL CHOLESTEROL 81 MG/DL (<100); NON-HDL-C 99 MG/DL; POTASSIUM SERUM 4.3 MEQ/L (3.5-5.1); SODIUM LEVEL 134 MEQ/L (136-145); TOTAL PROTEIN 8.8 GM/DL (6.4-8.2); TRIGLYCERIDES LEVEL 88 MG/DL (<150)
[2020-12-26 18:31] LABS: PTH INTACT 48.3 PG/ML (18.5-88.0); TOTAL 25(OH) VITAMIN D 36.6 NG/ML (30.0-100.0)
== END ==
LOC: M PLALAB 15:24
PROVIDERS: ATTEND Family Medicine
DX: R73.01 Impaired fasting glucose (principal); E55.9 Vitamin D deficiency, unspecified; I10 Essential (primary) hypertension; D50.9 Iron deficiency anemia, unspecified; Z79.899 Other long term (current) drug therapy; G56.01 Carpal tunnel syndrome, right upper limb; I50.30 Unspecified diastolic (congestive) heart failure
CPT/HCPCS: 36415; 80053; 80061; 82306; 82728; 83036; 83970; 84439; 84443; 85025; 90682; G0008; G0463

== ENCOUNTER → 2021-06-03 | Outpatient (CLI) | payer MEDICARE, MEDICAID ==
[~2021-06-03] MED LIST changes: +BENZ1LOZ9 MT; -CEPALOZ8 MT; -LISI-898 PO; +LISI5TAB11 PO
[2021-06-03 17:26] LABS: HEMOGLOBIN A1c 5.6 %
[2021-06-03 17:32] LABS: ALBUMIN 3.7 GM/DL (3.2-5.2); ALT/SGPT 28 U/L (12-78); BILIRUBIN,TOTAL 0.6 MG/DL (0.2-1.0); BLOOD UREA NITROGEN 17 MG/DL (7-18); CALCIUM LEVEL 9.1 MG/DL (8.8-10.2); CARBON DIOXIDE LEVEL 27 MEQ/L (21-32); CHLORIDE LEVEL 101 MEQ/L (98-107); CREATININE FOR GFR 1.05 MG/DL (0.70-1.30); GLOMERULAR FILTRATION RATE > 60.0 (>49); GLUCOSE, FASTING 88 MG/DL (70-100); MAGNESIUM LEVEL 2.2 MG/DL (1.8-2.4); NT-PRO BNP 60 PG/ML (<125); POTASSIUM SERUM 4.2 MEQ/L (3.5-5.1); SODIUM LEVEL 133 MEQ/L (136-145); TOTAL PROTEIN 8.9 GM/DL (6.4-8.2)
[2021-06-03 17:49] LABS: BASO % 0.5 % (0.0-1.0); EOS # 0.2 10^3/uL (0.0-0.5); EOS % 1.8 % (0.0-3.0); HEMATOCRIT 42.5 % (42.0-52.0); HEMOGLOBIN 14.4 g/dl (13.5-17.5); LYMPH # 1.9 10^3/uL (1.5-5.0); LYMPH % 21.8 % (24.0-44.0); MEAN CORPUSCULAR HEMOGLOBIN 29.6 pg (27.0-33.0); MEAN CORPUSCULAR HGB CONC 33.9 g/dl (32.0-36.5); MEAN CORPUSCULAR VOLUME 87.4 fl (80.0-96.0); MONO % 11.6 % (2.0-8.0); NEUTROPHILS # 5.7 10^3/uL (1.5-8.5); NEUTROPHILS % 63.7 % (36.0-66.0); PLATELET COUNT, AUTOMATED 182 10^3/uL (150-450); RED BLOOD COUNT 4.86 10^6/uL (4.30-6.10); WHITE BLOOD COUNT 8.9 10^3/uL (4.0-10.0)
== END ==
LOC: M PLALAB 15:50
PROVIDERS: ATTEND Family Medicine
DX: R73.01 Impaired fasting glucose (principal); I11.0 Hypertensive heart disease with heart failure; I50.30 Unspecified diastolic (congestive) heart failure; Z12.5 Encounter for screening for malignant neoplasm of prostate

== ENCOUNTER → 2021-06-11 | Outpatient (REF) | payer MEDICARE, MEDICAID ==
[~2021-06-11] MED LIST changes: -BENZ1LOZ9 MT; +CEPALOZ8 MT
[2021-06-11 18:22] LABS: APPEARANCE, URINE CLEAR (CLEAR); BACTERIA, URINE AUTO 1+ (NEGATIVE); BILIRUBIN, URINE AUTO NEGATIVE (NEGATIVE); BLOOD, URINE BLOOD 3+ (NEGATIVE); COLOR, URINE YELLOW (YELLOW); GLUCOSE, URINE (UA) AUTO NEGATIVE (NEGATIVE); KETONE, URINE AUTO NEGATIVE (NEGATIVE); LEUKOCYTE ESTERASE, URINE AUTO 3+ (NEGATIVE); NITRITE, URINE AUTO NEGATIVE (NEGATIVE); PROTEIN, URINE AUTO NEGATIVE (NEGATIVE); RBC, URINE AUTO 5 /HPF (0-3); SPECIFIC GRAVITY URINE AUTO 1.003 (1.002-1.035); SQUAMOUS EPITHELIAL CELL UR AU 0 /HPF (0-6); UROBILINOGEN, URINE AUTO 0.2 mg/dL (0.0-2.0); WBC, URINE AUTO 13 /HPF (0-3)
== END ==
LOC: M SFHCPLAZ 16:52
PROVIDERS: ATTEND Physician Assistant
DX: R31.9 Hematuria, unspecified (principal)

== ENCOUNTER → 2021-11-05 | Outpatient (CLI) | payer MEDICARE, MEDICAID ==
[~2021-11-05] MED LIST changes: +BENZ1LOZ9 MT; -CEPALOZ8 MT
[2021-11-05 15:49] LABS: HEMOGLOBIN A1c 5.3 %
[2021-11-05 16:04] LABS: ALBUMIN 3.6 GM/DL (3.2-5.2); ALT/SGPT 24 U/L (12-78); BILIRUBIN,TOTAL 0.6 MG/DL (0.2-1.0); BLOOD UREA NITROGEN 20 MG/DL (7-18); CALCIUM LEVEL 9.5 MG/DL (8.8-10.2); CARBON DIOXIDE LEVEL 24 MEQ/L (21-32); CHLORIDE LEVEL 105 MEQ/L (98-107); CHOLESTEROL LEVEL 126 MG/DL (<200); CHOLESTEROL RISK RATIO 3.405 (<5); CREATININE FOR GFR 0.95 MG/DL (0.70-1.30); GLOMERULAR FILTRATION RATE > 60.0 (>49); GLUCOSE, FASTING 93 MG/DL (70-100); HDL CHOLESTEROL 37 MG/DL (>40); LDL CHOLESTEROL 73 MG/DL (<100); NON-HDL-C 89 MG/DL; NT-PRO BNP 119 PG/ML (<125); POTASSIUM SERUM 3.8 MEQ/L (3.5-5.1); SODIUM LEVEL 135 MEQ/L (136-145); TOTAL PROTEIN 8.2 GM/DL (6.4-8.2); TRIGLYCERIDES LEVEL 82 MG/DL (<150)
[2021-11-05 16:06] LABS: BASO % 0.4 % (0.0-1.0); EOS # 0.2 10^3/uL (0.0-0.5); EOS % 2.9 % (0.0-3.0); HEMATOCRIT 39.8 % (42.0-52.0); HEMOGLOBIN 13.4 g/dl (13.5-17.5); LYMPH # 1.9 10^3/uL (1.5-5.0); MEAN CORPUSCULAR HEMOGLOBIN 29.8 pg (27.0-33.0); MEAN CORPUSCULAR VOLUME 88.4 fl (80.0-96.0); MONO # 1.1 10^3/uL (0.0-0.8); MONO % 15.6 % (2.0-8.0); NEUTROPHILS # 3.7 10^3/uL (1.5-8.5); NEUTROPHILS % 53.7 % (36.0-66.0); PLATELET COUNT, AUTOMATED 153 10^3/uL (150-450); WHITE BLOOD COUNT 6.9 10^3/uL (4.0-10.0)
[2021-11-05 16:08] LABS: MEAN CORPUSCULAR HGB CONC 33.7 g/dl (32.0-36.5)
== END ==
LOC: M PLALAB 13:58
PROVIDERS: ATTEND Physician Assistant Medical
DX: I50.30 Unspecified diastolic (congestive) heart failure (principal)

== ENCOUNTER 2021-11-29 23:32 | Inpatient (IN) | payer MEDICARE, MEDICAID ==
[~2021-11-29] VITALS: Ht 177.8 cm; Wt 132.7 kg
[~2021-11-29 23:32] MED LIST changes: -ATOR1TAB21; +ATOR1TAB21 PO
[2021-11-30 00:19] LABS: BASO % 0.1 % (0.0-1.0); EOS % 0.1 % (0.0-3.0); HEMATOCRIT 38.2 % (42.0-52.0); HEMOGLOBIN 13.6 g/dl (13.5-17.5); LYMPH # 1.1 10^3/uL (1.5-5.0); LYMPH % 6.9 % (24.0-44.0); MEAN CORPUSCULAR HGB CONC 35.6 g/dl (32.0-36.5); MEAN CORPUSCULAR VOLUME 89.9 fl (80.0-96.0); MONO # 1.5 10^3/uL (0.0-0.8); MONO % 9.9 % (2.0-8.0); NEUTROPHILS # 12.6 10^3/uL (1.5-8.5); NEUTROPHILS % 82.7 % (36.0-66.0); PLATELET COUNT, AUTOMATED 171 10^3/uL (150-450); RED BLOOD COUNT 4.25 10^6/uL (4.30-6.10); WHITE BLOOD COUNT 15.2 10^3/uL (4.0-10.0)
[2021-11-30 00:40] LABS: ERYTHROCYTE SEDIMENTATION RATE 50 mm/hr (0-20)
[2021-11-30] MEDS ORDERED: fentaNYL 100 MCG/2 ML INJECTION IV ONE (00:45)
[2021-11-30] MEDS ORDERED: LIDOCAINE 2% 5ML JELLY UROJET TOP ONE (00:45)
[2021-11-30 01:00] LABS: BLOOD UREA NITROGEN 20 MG/DL (7-18); CALCIUM LEVEL 8.8 MG/DL (8.8-10.2); CARBON DIOXIDE LEVEL 25 MEQ/L (21-32); CHLORIDE LEVEL 102 MEQ/L (98-107); CREATININE FOR GFR 1.06 MG/DL (0.70-1.30); GLOMERULAR FILTRATION RATE > 60.0 (>49); GLUCOSE, FASTING 121 MG/DL (70-100); POTASSIUM SERUM 3.9 MEQ/L (3.5-5.1); SODIUM LEVEL 135 MEQ/L (136-145)
[2021-11-30 02:53] LABS: GC DNA AMPLIFICATION NEGATIVE (NEGATIVE)
[2021-11-30] MEDS ORDERED: IRBE150T7 PO (03:17)
[2021-11-30] MEDS ORDERED: FINA5TAB2 PO (03:17)
[2021-11-30] MEDS ORDERED: KETOROLAC 30 MG/ML 1ML VIAL IV PRN (03:20)
[2021-11-30] MEDS ORDERED: HOME MED LIST COMPLETE! XX SCH (03:25)
[2021-11-30] MEDS: PERCOCET 5MG/325MG TAB PO PRN ×2 (03:51→10:01)
[2021-11-30 05:00] LABS: INR 1.43; PARTIAL THROMBOPLASTIN TIME 38.8 SECONDS (25.9-37.0); PROTHROMBIN TIME 17.9 SECONDS (12.7-14.5)
[2021-11-30] MEDS ORDERED: CIPROFLOXACIN 400 MG in IV 1 EA IV SCH (05:00)
[2021-11-30 07:25] LABS: HEMATOCRIT 34.4 % (42.0-52.0); HEMOGLOBIN 12.5 g/dl (13.5-17.5); MEAN CORPUSCULAR HGB CONC 36.3 g/dl (32.0-36.5); MEAN CORPUSCULAR VOLUME 90.8 fl (80.0-96.0); PLATELET COUNT, AUTOMATED 169 10^3/uL (150-450); RED BLOOD COUNT 3.79 10^6/uL (4.30-6.10); WHITE BLOOD COUNT 18.3 10^3/uL (4.0-10.0)
[2021-11-30 07:58] LABS: BLOOD UREA NITROGEN 20 MG/DL (7-18); CALCIUM LEVEL 8.7 MG/DL (8.8-10.2); CARBON DIOXIDE LEVEL 26 MEQ/L (21-32); CHLORIDE LEVEL 101 MEQ/L (98-107); CREATININE FOR GFR 1.08 MG/DL (0.70-1.30); GLOMERULAR FILTRATION RATE > 60.0 (>49); GLUCOSE, FASTING 137 MG/DL (70-100); MAGNESIUM LEVEL 1.8 MG/DL (1.8-2.4); POTASSIUM SERUM 3.7 MEQ/L (3.5-5.1); SODIUM LEVEL 133 MEQ/L (136-145)
[2021-11-30] MEDS: FERROUS SULFATE 325MG TAB PO SCH (10:00)
[2021-11-30] MEDS: PIPERACILLIN/TAZOBACTAM SOD 3.375 GM in D5W MINI-BAG PLUS 50 ML IV SCH ×3 (10:00→20:11)
[2021-11-30] MEDS: ATORVASTATIN 20 MG TAB PO SCH (10:00)
[2021-11-30] MEDS: BACLOFEN 10 MG TAB PO SCH ×4 (10:01→20:12)
[2021-11-30] MEDS: FINASTERIDE 5MG TAB PO SCH (10:01)
[2021-11-30] MEDS: DOCUSATE SODIUM 100MG CAPSULE PO SCH ×2 (10:01→20:11)
[2021-11-30] MEDS: APIXABAN 5 MG TAB (ELIQUIS) PO SCH ×2 (10:01→20:12)
[2021-11-30] MEDS: NS 1,000 ML IV SCH ×2 (11:09→18:26)
[2021-11-30] MEDS: IRBESARTAN 150MG TAB PO SCH ×2 (13:35→20:12)
[2021-11-30 16:00] VITALS: BP 145/84
[2021-11-30 16:05] LABS: BASO % 0.2 % (0.0-1.0); HEMATOCRIT 38.9 % (42.0-52.0); HEMOGLOBIN 13.3 g/dl (13.5-17.5); LYMPH # 1.8 10^3/uL (1.5-5.0); LYMPH % 7.8 % (24.0-44.0); MEAN CORPUSCULAR HEMOGLOBIN 30.6 pg (27.0-33.0); MEAN CORPUSCULAR HGB CONC 34.2 g/dl (32.0-36.5); MEAN CORPUSCULAR VOLUME 89.4 fl (80.0-96.0); NEUTROPHILS % 81.2 % (36.0-66.0); RED BLOOD COUNT 4.35 10^6/uL (4.30-6.10); WHITE BLOOD COUNT 23.4 10^3/uL (4.0-10.0)
[2021-11-30 16:24] LABS: MONO # 2.3 10^3/uL (0.0-0.8); PLATELET COUNT, AUTOMATED 152 10^3/uL (150-450)
[2021-11-30 16:25] LABS: MONO % 9.7 % (2.0-8.0)
[2021-11-30] MEDS: ACETAMINOPHEN TAB 650MG DOSE (2X325MG) PO PRN (16:26)
[2021-11-30] MEDS ORDERED: ISOVUE-370 76% 100ML VIAL As Ordered ONE (16:46)
[2021-11-30] MEDS ORDERED: SODIUM CHLORIDE 0.9% 1000ML IV ONE (17:00)
[2021-11-30] MEDS ORDERED: methocarbamoL 500 MG TAB PO ONE (19:10)
[2021-11-30] MEDS: TAMSULOSIN 0.4 MG CAP PO SCH (20:11)
[2021-11-30] MEDS: FAMOTIDINE 20 MG TAB PO SCH (20:11)
[2021-11-30 20:30] VITALS: BP 124/67
[2021-12-01] MEDS ORDERED: UNRESOLVED CLARIFICATION ENTRY XX SCH (00:01)
[2021-12-01] MEDS: PIPERACILLIN/TAZOBACTAM SOD 3.375 GM in D5W MINI-BAG PLUS 50 ML IV SCH ×4 (02:48→20:31)
[2021-12-01 05:25] VITALS: BP 124/70
[2021-12-01] MEDS: NS 1,000 ML IV SCH (05:36)
[2021-12-01 06:56] LABS: HEMOGLOBIN 12.8 g/dl (13.5-17.5); MEAN CORPUSCULAR HEMOGLOBIN 30.9 pg (27.0-33.0); MEAN CORPUSCULAR HGB CONC 34.6 g/dl (32.0-36.5); MEAN CORPUSCULAR VOLUME 89.4 fl (80.0-96.0); PLATELET COUNT, AUTOMATED 159 10^3/uL (150-450); RED BLOOD COUNT 4.14 10^6/uL (4.30-6.10); WHITE BLOOD COUNT 21.9 10^3/uL (4.0-10.0)
[2021-12-01 07:27] LABS: BLOOD UREA NITROGEN 14 MG/DL (7-18); CALCIUM LEVEL 8.4 MG/DL (8.8-10.2); CARBON DIOXIDE LEVEL 25 MEQ/L (21-32); CHLORIDE LEVEL 101 MEQ/L (98-107); CREATININE FOR GFR 1.01 MG/DL (0.70-1.30); GLOMERULAR FILTRATION RATE > 60.0 (>49); GLUCOSE, FASTING 103 MG/DL (70-100); MAGNESIUM LEVEL 1.9 MG/DL (1.8-2.4); POTASSIUM SERUM 3.4 MEQ/L (3.5-5.1); SODIUM LEVEL 131 MEQ/L (136-145)
[2021-12-01] MEDS: FINASTERIDE 5MG TAB PO SCH (08:56)
[2021-12-01] MEDS: APIXABAN 5 MG TAB (ELIQUIS) PO SCH ×2 (08:56→20:30)
[2021-12-01] MEDS: DOCUSATE SODIUM 100MG CAPSULE PO SCH ×2 (08:56→20:31)
[2021-12-01] MEDS: ATORVASTATIN 20 MG TAB PO SCH (08:56)
[2021-12-01] MEDS: BACLOFEN 10 MG TAB PO SCH ×4 (08:57→20:30)
[2021-12-01] MEDS ORDERED: POTASSIUM CHLORIDE 10MEQ SR TABLET PO ONE (09:00)
[2021-12-01] MEDS: IRBESARTAN 150MG TAB PO SCH ×2 (09:01→20:34)
[2021-12-01 09:24] LABS: OSMOLALITY URINE 589 MOSM/KG (50-1400)
[2021-12-01 09:58] LABS: SODIUM,RANDOM URINE 111 MEQ/L
[2021-12-01] MEDS: SENNA 8.6 MG TAB (SENOKOT) PO SCH (10:11)
[2021-12-01] MEDS: MIRALAX *UNIT DOSE* 17GM PACKET PO SCH (10:11)
[2021-12-01] MEDS: PERCOCET 5MG/325MG TAB PO PRN (13:17)
[2021-12-01 14:00] VITALS: BP 143/86
[2021-12-01] MEDS: ACETAMINOPHEN TAB 650MG DOSE (2X325MG) PO PRN ×2 (15:16→20:31)
[2021-12-01] MEDS: TAMSULOSIN 0.4 MG CAP PO SCH (20:30)
[2021-12-01] MEDS: FAMOTIDINE 20 MG TAB PO SCH (20:31)
[2021-12-01] MEDS ORDERED: ONDANSETRON 4MG 2ML VIAL IV PRN (23:45)
[2021-12-02] MEDS: PIPERACILLIN/TAZOBACTAM SOD 3.375 GM in D5W MINI-BAG PLUS 50 ML IV SCH ×2 (02:10→09:24)
[2021-12-02 06:00] VITALS: BP 140/70
[2021-12-02] MEDS: ACETAMINOPHEN TAB 650MG DOSE (2X325MG) PO PRN (06:03)
[2021-12-02 06:17] LABS: HEMATOCRIT 37.1 % (42.0-52.0); HEMOGLOBIN 12.5 g/dl (13.5-17.5); MEAN CORPUSCULAR HEMOGLOBIN 30.6 pg (27.0-33.0); MEAN CORPUSCULAR HGB CONC 33.7 g/dl (32.0-36.5); MEAN CORPUSCULAR VOLUME 90.9 fl (80.0-96.0); PLATELET COUNT, AUTOMATED 151 10^3/uL (150-450); RED BLOOD COUNT 4.08 10^6/uL (4.30-6.10)
[2021-12-02 06:54] LABS: BLOOD UREA NITROGEN 17 MG/DL (7-18); CALCIUM LEVEL 8.3 MG/DL (8.8-10.2); CARBON DIOXIDE LEVEL 27 MEQ/L (21-32); CHLORIDE LEVEL 103 MEQ/L (98-107); CREATININE FOR GFR 1.06 MG/DL (0.70-1.30); GLOMERULAR FILTRATION RATE > 60.0 (>49); GLUCOSE, FASTING 113 MG/DL (70-100); POTASSIUM SERUM 4.2 MEQ/L (3.5-5.1); SODIUM LEVEL 134 MEQ/L (136-145)
[2021-12-02] MEDS: MIRALAX *UNIT DOSE* 17GM PACKET PO SCH (09:00)
[2021-12-02] MEDS: IRBESARTAN 150MG TAB PO SCH ×2 (09:24→20:13)
[2021-12-02] MEDS: ATORVASTATIN 20 MG TAB PO SCH (09:24)
[2021-12-02] MEDS: FINASTERIDE 5MG TAB PO SCH (09:24)
[2021-12-02] MEDS: SENNA 8.6 MG TAB (SENOKOT) PO SCH (09:24)
[2021-12-02] MEDS: FERROUS SULFATE 325MG TAB PO SCH (09:24)
[2021-12-02] MEDS: APIXABAN 5 MG TAB (ELIQUIS) PO SCH ×2 (09:24→20:12)
[2021-12-02] MEDS: DOCUSATE SODIUM 100MG CAPSULE PO SCH ×2 (09:24→20:13)
[2021-12-02] MEDS: BACLOFEN 10 MG TAB PO SCH ×4 (09:24→20:12)
[2021-12-02] MEDS ORDERED: KETOROLAC 30 MG/ML 1ML VIAL IV PRN (10:40)
[2021-12-02] MEDS ORDERED: MAGNESIUM CITRATE 300 ML BTL PO ONE (11:00)
[2021-12-02] MEDS: BACTRIM 160MG/800MG DS TAB PO SCH ×2 (13:19→20:12)
[2021-12-02 14:00] VITALS: BP 126/68
[2021-12-02 20:00] VITALS: BP 133/89
[2021-12-02] MEDS: TAMSULOSIN 0.4 MG CAP PO SCH (20:12)
[2021-12-02] MEDS: FAMOTIDINE 20 MG TAB PO SCH (20:12)
[2021-12-03] MEDS: ACETAMINOPHEN TAB 650MG DOSE (2X325MG) PO PRN (03:32)
[2021-12-03 05:00] VITALS: BP 133/74
[2021-12-03 06:48] LABS: HEMATOCRIT 33.7 % (42.0-52.0); HEMOGLOBIN 12.4 g/dl (13.5-17.5); MEAN CORPUSCULAR HEMOGLOBIN 34.4 pg (27.0-33.0); MEAN CORPUSCULAR VOLUME 93.6 fl (80.0-96.0); PLATELET COUNT, AUTOMATED 176 10^3/uL (150-450); WHITE BLOOD COUNT 14.1 10^3/uL (4.0-10.0)
[2021-12-03 07:05] LABS: MEAN CORPUSCULAR HGB CONC 36.8 g/dl (32.0-36.5)
[2021-12-03 07:10] LABS: BLOOD UREA NITROGEN 22 MG/DL (7-18); CALCIUM LEVEL 8.5 MG/DL (8.8-10.2); CARBON DIOXIDE LEVEL 23 MEQ/L (21-32); CHLORIDE LEVEL 105 MEQ/L (98-107); CREATININE FOR GFR 0.99 MG/DL (0.70-1.30); GLOMERULAR FILTRATION RATE > 60.0 (>49); GLUCOSE, FASTING 108 MG/DL (70-100); POTASSIUM SERUM 3.7 MEQ/L (3.5-5.1); SODIUM LEVEL 135 MEQ/L (136-145)
[2021-12-03] MEDS: FINASTERIDE 5MG TAB PO SCH (08:59)
[2021-12-03] MEDS: ATORVASTATIN 20 MG TAB PO SCH (08:59)
[2021-12-03] MEDS: SENNA 8.6 MG TAB (SENOKOT) PO SCH (08:59)
[2021-12-03] MEDS: BACLOFEN 10 MG TAB PO SCH (08:59)
[2021-12-03] MEDS: APIXABAN 5 MG TAB (ELIQUIS) PO SCH (09:00)
[2021-12-03] MEDS: DOCUSATE SODIUM 100MG CAPSULE PO SCH (09:00)
[2021-12-03] MEDS: MIRALAX *UNIT DOSE* 17GM PACKET PO SCH (09:00)
[2021-12-03] MEDS: BACTRIM 160MG/800MG DS TAB PO SCH (09:00)
[2021-12-03 09:05] VITALS: BP 130/78
[2021-12-03] MEDS: IRBESARTAN 150MG TAB PO SCH (09:05)
[2021-12-03] MEDS ORDERED: BACTDSTA PO (10:44)
== END 2021-12-03 11:55 | disposition home or self-care (01) | DRG 728 ==
LOC: EDBD 23:32 → M ED 23:32 → M ED INP 11-30 03:17 → M MSPAV 11-30 15:39
PROVIDERS: ADMIT Family Medicine; ATTEND Internal Medicine
DX: N45.3 Epididymo-orchitis (principal); I50.30 Unspecified diastolic (congestive) heart failure; E87.1 Hypo-osmolality and hyponatremia; Z68.41 Body mass index [BMI] 40.0-44.9, adult; R33.9 Retention of urine, unspecified; I11.0 Hypertensive heart disease with heart failure; E78.5 Hyperlipidemia, unspecified; K21.9 Gastro-esophageal reflux disease without esophagitis; D50.9 Iron deficiency anemia, unspecified; K40.20 Bilateral inguinal hernia, without obstruction or gangrene, not specified as recurrent; N40.0 Benign prostatic hyperplasia without lower urinary tract symptoms; R53.1 Weakness; Z86.718 Personal history of other venous thrombosis and embolism; D72.829 Elevated white blood cell count, unspecified; B96.20 Unspecified Escherichia coli [E. coli] as the cause of diseases classified elsewhere; E66.9 Obesity, unspecified; Z79.01 Long term (current) use of anticoagulants; Z88.5 Allergy status to narcotic agent; Z79.899 Other long term (current) drug therapy

== ENCOUNTER → 2021-12-09 | Outpatient (CLI) | payer MEDICARE, MEDICAID ==
[~2021-12-09] MED LIST changes: +BACTDSTA PO; +FINA5TAB2 PO
[2021-12-09 17:53] LABS: BASO # 0.1 10^3/uL (0.0-0.2); BASO % 0.6 % (0.0-1.0); EOS # 0.2 10^3/uL (0.0-0.5); EOS % 2.6 % (0.0-3.0); HEMATOCRIT 40.2 % (42.0-52.0); HEMOGLOBIN 13.4 g/dl (13.5-17.5); LYMPH # 2.1 10^3/uL (1.5-5.0); LYMPH % 25.6 % (24.0-44.0); MEAN CORPUSCULAR HEMOGLOBIN 29.8 pg (27.0-33.0); MEAN CORPUSCULAR HGB CONC 33.3 g/dl (32.0-36.5); MEAN CORPUSCULAR VOLUME 89.5 fl (80.0-96.0); MONO # 1.1 10^3/uL (0.0-0.8); MONO % 13.6 % (2.0-8.0); NEUTROPHILS # 4.6 10^3/uL (1.5-8.5); NEUTROPHILS % 56.2 % (36.0-66.0); PLATELET COUNT, AUTOMATED 273 10^3/uL (150-450); RED BLOOD COUNT 4.49 10^6/uL (4.30-6.10); WHITE BLOOD COUNT 8.1 10^3/uL (4.0-10.0)
[2021-12-09 19:01] LABS: ALBUMIN 3.3 GM/DL (3.2-5.2); ALT/SGPT 26 U/L (12-78); BILIRUBIN,TOTAL 0.4 MG/DL (0.2-1.0); BLOOD UREA NITROGEN 21 MG/DL (7-18); CALCIUM LEVEL 9.2 MG/DL (8.8-10.2); CARBON DIOXIDE LEVEL 24 MEQ/L (21-32); CHLORIDE LEVEL 103 MEQ/L (98-107); CREATININE FOR GFR 1.07 MG/DL (0.70-1.30); GLOMERULAR FILTRATION RATE > 60.0 (>49); GLUCOSE, FASTING 94 MG/DL (70-100); POTASSIUM SERUM 4.4 MEQ/L (3.5-5.1); SODIUM LEVEL 134 MEQ/L (136-145); TOTAL PROTEIN 8.7 GM/DL (6.4-8.2)
== END ==
LOC: M PLALAB 14:38
PROVIDERS: ATTEND Physician Assistant Medical
DX: I50.30 Unspecified diastolic (congestive) heart failure (principal); N45.1 Epididymitis

== ENCOUNTER → 2022-02-24 | Outpatient (CLI) | payer MEDICARE, MEDICAID | LOC: M RAD 11:48 | PROVIDERS: ATTEND Physician Assistant | DX: N50.89 Other specified disorders of the male genital organs (principal) ==

== ENCOUNTER → 2022-04-10 | Outpatient (CLI) | payer MEDICARE, MEDICAID ==
[2022-04-10 18:10] LABS: MAGNESIUM LEVEL 1.8 MG/DL (1.8-2.4)
[2022-04-10 18:12] LABS: ALBUMIN 3.5 G/DL (3.2-5.2); ALKALINE PHOSPHATASE 85 U/L (46-116); ALT/SGPT 23 U/L (7.0-40); AST/SGOT 22 U/L (<34); BILIRUBIN,TOTAL 0.6 MG/DL (0.3-1.2); BLOOD UREA NITROGEN 19 MG/DL (9-23); CALCIUM LEVEL 8.7 MG/DL (8.3-10.6); CARBON DIOXIDE LEVEL 26 MMOL/L (20-31); CHLORIDE LEVEL 102 MMOL/L (98-107); CREATININE FOR GFR 0.82 MG/DL (0.70-1.30); GLOMERULAR FILTRATION RATE > 60.0 (>49); GLUCOSE, FASTING 85 MG/DL (74-106); POTASSIUM SERUM 4.4 MMOL/L (3.5-5.1); SODIUM LEVEL 137 MMOL/L (136-145); TOTAL PROTEIN 8.2 G/DL (5.7-8.2)
[2022-04-10 18:13] LABS: FERRITIN 248.2 NG/ML (10.5-307.3)
[2022-04-10 18:34] LABS: BASO % 0.4 % (0.0-1.0); EOS # 0.1 10^3/uL (0.0-0.5); EOS % 1.5 % (0.0-3.0); HEMOGLOBIN 12.9 g/dl (13.5-17.5); LYMPH # 2.5 10^3/uL (1.5-5.0); LYMPH % 31.3 % (24.0-44.0); MEAN CORPUSCULAR HEMOGLOBIN 29.5 pg (27.0-33.0); MEAN CORPUSCULAR HGB CONC 33.1 g/dl (32.0-36.5); MONO % 12.7 % (2.0-8.0); NEUTROPHILS # 4.3 10^3/uL (1.5-8.5); NEUTROPHILS % 53.9 % (36.0-66.0); PLATELET COUNT, AUTOMATED 169 10^3/uL (150-450); RED BLOOD COUNT 4.38 10^6/uL (4.30-6.10)
[2022-04-10 18:41] LABS: HEMOGLOBIN A1c 5.2 % (4.0-6.0)
== END ==
LOC: M PLALAB 15:03
PROVIDERS: ATTEND Family Medicine
DX: Z12.5 Encounter for screening for malignant neoplasm of prostate (principal); I50.30 Unspecified diastolic (congestive) heart failure; D50.9 Iron deficiency anemia, unspecified; R73.01 Impaired fasting glucose
CPT/HCPCS: 36415; 80053; 82728; 83036; 83525; 83735; 83880; 85025; 85046; G0103

== ENCOUNTER → 2022-09-25 | Outpatient (REF) | payer MEDICARE, MEDICAID ==
[~2022-09-25] MED LIST changes: +FINA-48 PO; -PROS5TAB PO
[2022-09-25 18:44] LABS: APPEARANCE, URINE CLOUDY (CLEAR); BACTERIA, URINE AUTO NEGATIVE (NEGATIVE); BILIRUBIN, URINE AUTO NEGATIVE (NEGATIVE); BLOOD, URINE BLOOD 3+ (NEGATIVE); COLOR, URINE YELLOW (YELLOW); GLUCOSE, URINE (UA) AUTO NEGATIVE (NEGATIVE); KETONE, URINE AUTO NEGATIVE (NEGATIVE); LEUKOCYTE ESTERASE, URINE AUTO 3+ (NEGATIVE); MUCUS, URINE SMALL (NEGATIVE); NITRITE, URINE AUTO NEGATIVE (NEGATIVE); PROTEIN, URINE AUTO 1+ mg/dL (NEGATIVE); RBC, URINE AUTO TNTC /HPF (0-3); SPECIFIC GRAVITY URINE AUTO 1.016 (1.002-1.035); SQUAMOUS EPITHELIAL CELL UR AU 0 /HPF (0-6); UROBILINOGEN, URINE AUTO 0.2 mg/dL (0.0-2.0); WBC, URINE AUTO 141 /HPF (0-3)
== END ==
LOC: M SMT 16:56
PROVIDERS: ATTEND Physician Assistant
DX: R31.0 Gross hematuria (principal)

== ENCOUNTER → 2023-02-04 | Outpatient (CLI) | payer MEDICARE, MEDICAID ==
[~2023-02-04] MED LIST changes: -GABA-283 PO; +GABA-284 PO
[2023-02-04 14:28] LABS: HEMATOCRIT 39.6 % (42.0-52.0); HEMOGLOBIN 13.7 g/dl (13.5-17.5); LYMPH % 20.7 % (24.0-44.0); MEAN CORPUSCULAR HEMOGLOBIN 30.6 pg (27.0-33.0); MEAN CORPUSCULAR HGB CONC 34.6 g/dl (32.0-36.5); MEAN CORPUSCULAR VOLUME 88.6 fl (80.0-96.0); MONO % 13.1 % (2.0-8.0); NEUTROPHILS % 63.4 % (36.0-66.0); PLATELET COUNT, AUTOMATED 206 10^3/uL (150-450); RED BLOOD COUNT 4.47 10^6/uL (4.30-6.10); WHITE BLOOD COUNT 7.8 10^3/uL (4.0-10.0)
[2023-02-04 14:29] LABS: BASO % 0.4 % (0.0-1.0); EOS # 0.2 10^3/uL (0.0-0.5); LYMPH # 1.6 10^3/uL (1.5-5.0)
[2023-02-04 14:54] LABS: ALBUMIN 3.5 G/DL (3.2-5.2); ALKALINE PHOSPHATASE 88 U/L (46-116); ALT/SGPT 23 U/L (7.0-40); AST/SGOT 18 U/L (<34); BILIRUBIN,TOTAL 0.7 MG/DL (0.3-1.2); BLOOD UREA NITROGEN 27 MG/DL (9-23); CALCIUM LEVEL 9.1 MG/DL (8.3-10.6); CARBON DIOXIDE LEVEL 25 MMOL/L (20-31); CHLORIDE LEVEL 103 MMOL/L (98-107); CHOLESTEROL LEVEL 144 MG/DL (<200); CHOLESTEROL RISK RATIO 4.18 (<5); CREATININE FOR GFR 0.82 MG/DL (0.70-1.30); FERRITIN 186.9 NG/ML (10.5-307.3); GLOMERULAR FILTRATION RATE > 60.0 (>49); GLUCOSE, FASTING 95 MG/DL (74-106); HDL CHOLESTEROL 34.4 MG/DL (>40); LDL CHOLESTEROL 95.2 MG/DL (<100); NON-HDL-C 109.6 MG/DL; SODIUM LEVEL 134 MMOL/L (136-145); TOTAL PROTEIN 8.2 G/DL (5.7-8.2); TRIGLYCERIDES LEVEL 72 MG/DL (<150)
== END ==
LOC: M LAB 13:53
PROVIDERS: ATTEND Family Medicine
DX: I50.32 Chronic diastolic (congestive) heart failure (principal); R73.01 Impaired fasting glucose; D50.9 Iron deficiency anemia, unspecified

== ENCOUNTER → 2023-07-22 | Outpatient (CLI) | payer MEDICARE, MEDICAID ==
[~2023-07-22] MED LIST changes: +IRBE150T27 PO; -IRBE150T7 PO
[2023-07-22 14:31] LABS: HEMOGLOBIN A1c 5.1 % (4.0-6.0)
[2023-07-22 14:35] LABS: PSA SCREENING 0.22 NG/ML (< 4.00)
[2023-07-22 14:40] LABS: ALBUMIN 3.1 G/DL (3.2-5.2); ALKALINE PHOSPHATASE 88 U/L (46-116); ALT/SGPT 23 U/L (7.0-40); AST/SGOT 18 U/L (<34); BILIRUBIN,TOTAL 0.6 MG/DL (0.3-1.2); BLOOD UREA NITROGEN 22 MG/DL (9-23); CALCIUM LEVEL 8.9 MG/DL (8.3-10.6); CARBON DIOXIDE LEVEL 25 MMOL/L (20-31); CHLORIDE LEVEL 106 MMOL/L (98-107); CREATININE FOR GFR 0.97 MG/DL (0.70-1.30); GLOMERULAR FILTRATION RATE > 60.0 (>42); GLUCOSE, FASTING 94 MG/DL (74-106); MAGNESIUM LEVEL 1.9 MG/DL (1.8-2.4); SODIUM LEVEL 136 MMOL/L (136-145)
[2023-07-22 14:42] LABS: FERRITIN 148.7 NG/ML (10.5-307.3)
[2023-07-22 14:54] LABS: BASO % 0.4 % (0.0-1.0); EOS # 0.2 10^3/uL (0.0-0.5); EOS % 3.4 % (0.0-3.0); HEMATOCRIT 36.2 % (42.0-52.0); HEMOGLOBIN 12.6 g/dl (13.5-17.5); LYMPH # 2.2 10^3/uL (1.5-5.0); LYMPH % 31.2 % (24.0-44.0); MEAN CORPUSCULAR HEMOGLOBIN 30.7 pg (27.0-33.0); MEAN CORPUSCULAR HGB CONC 34.8 g/dl (32.0-36.5); MEAN CORPUSCULAR VOLUME 88.3 fl (80.0-96.0); MONO # 1.2 10^3/uL (0.0-0.8); MONO % 16.5 % (2.0-8.0); NEUTROPHILS # 3.4 10^3/uL (1.5-8.5); NEUTROPHILS % 48.1 % (36.0-66.0); PLATELET COUNT, AUTOMATED 176 10^3/uL (150-450)
== END ==
LOC: M LAB 13:15
PROVIDERS: ATTEND Family Medicine
DX: I50.32 Chronic diastolic (congestive) heart failure (principal); R73.01 Impaired fasting glucose; D50.9 Iron deficiency anemia, unspecified; Z12.5 Encounter for screening for malignant neoplasm of prostate
CPT/HCPCS: 36415; 80053; 82728; 83036; 83735; 85025; G0103

== ENCOUNTER → 2023-10-29 | Outpatient (REF) | payer MEDICARE, MEDICAID ==
[2023-10-29 13:26] LABS: APPEARANCE, URINE CLEAR (CLEAR); BACTERIA, URINE AUTO 1+ (NEGATIVE); BILIRUBIN, URINE AUTO NEGATIVE (NEGATIVE); BLOOD, URINE BLOOD 2+ (NEGATIVE); COLOR, URINE YELLOW (YELLOW); GLUCOSE, URINE (UA) AUTO NEGATIVE (NEGATIVE); KETONE, URINE AUTO NEGATIVE (NEGATIVE); LEUKOCYTE ESTERASE, URINE AUTO 3+ (NEGATIVE); MUCUS, URINE SMALL (NEGATIVE); NITRITE, URINE AUTO NEGATIVE (NEGATIVE); PROTEIN, URINE AUTO NEGATIVE (NEGATIVE); RBC, URINE AUTO 3 /HPF (0-3); SPECIFIC GRAVITY URINE AUTO 1.012 (1.002-1.035); SQUAMOUS EPITHELIAL CELL UR AU 0 /HPF (0-6); UROBILINOGEN, URINE AUTO 0.2 mg/dL (0.0-2.0); WBC, URINE AUTO 47 /HPF (0-3)
== END ==
LOC: M SFHCPLAZ 11:28
PROVIDERS: ATTEND Family Medicine
DX: R82.998 Other abnormal findings in urine (principal)

== ENCOUNTER → 2023-11-02 | Outpatient (REF) | payer MEDICARE, MEDICAID | LOC: M SFHCPLAZ 12:33 | PROVIDERS: ATTEND Family Medicine | DX: I50.32 Chronic diastolic (congestive) heart failure (principal); R73.01 Impaired fasting glucose; D50.9 Iron deficiency anemia, unspecified; E55.9 Vitamin D deficiency, unspecified ==

== ENCOUNTER → 2023-11-27 | Outpatient (CLI) | payer MEDICARE, MEDICAID | LOC: M WHC 10:47 | PROVIDERS: ATTEND Family Medicine | DX: N32.89 Other specified disorders of bladder (principal); R82.998 Other abnormal findings in urine ==

== ENCOUNTER 2023-12-11 23:21 | Emergency (ER) | payer MEDICARE, MEDICAID ==
[2023-12-12] MEDS ORDERED: COLA100C5 PO (01:14)
[2023-12-12 01:48] VITALS: BP 142/85; TEMP 97.2; O2SAT 97
== END 2023-12-12 01:48 | disposition home or self-care (01) ==
LOC: M ED 23:21
DX: S61.213A Laceration without foreign body of left middle finger without damage to nail, initial encounter (principal); Y92.019 Unspecified place in single-family (private) house as the place of occurrence of the external cause; Y93.9 Activity, unspecified; Y99.9 Unspecified external cause status; Z88.5 Allergy status to narcotic agent; Z79.01 Long term (current) use of anticoagulants; Z79.2 Long term (current) use of antibiotics; Z79.899 Other long term (current) drug therapy

== ENCOUNTER → 2023-12-23 | Outpatient (CLI) | payer MEDICARE, MEDICAID ==
[~2023-12-23] MED LIST changes: +COLA100C5 PO
[2023-12-23 15:21] LABS: BASO % 0.5 % (0.0-1.0); EOS # 0.2 10^3/uL (0.0-0.5); EOS % 3.2 % (0.0-3.0); HEMATOCRIT 36.5 % (42.0-52.0); HEMOGLOBIN 12.9 g/dl (13.5-17.5); LYMPH # 1.9 10^3/uL (1.5-5.0); LYMPH % 28.4 % (24.0-44.0); MEAN CORPUSCULAR HEMOGLOBIN 31.4 pg (27.0-33.0); MEAN CORPUSCULAR HGB CONC 35.3 g/dl (32.0-36.5); MEAN CORPUSCULAR VOLUME 88.8 fl (80.0-96.0); MONO # 1.1 10^3/uL (0.0-0.8); NEUTROPHILS # 3.4 10^3/uL (1.5-8.5); NEUTROPHILS % 51.7 % (36.0-66.0); PLATELET COUNT, AUTOMATED 181 10^3/uL (150-450); RED BLOOD COUNT 4.11 10^6/uL (4.30-6.10); WHITE BLOOD COUNT 6.6 10^3/uL (4.0-10.0)
[2023-12-23 15:29] LABS: HEMOGLOBIN A1c 5.1 % (4.0-6.0)
[2023-12-23 15:36] LABS: INR 1.53; PARTIAL THROMBOPLASTIN TIME 34.7 SECONDS (24.8-34.2); PROTHROMBIN TIME 17.9 SECONDS (12.5-14.5)
[2023-12-23 15:50] LABS: ALBUMIN 3.3 G/DL (3.2-5.2); ALKALINE PHOSPHATASE 97 U/L (46-116); ALT/SGPT 19 U/L (7.0-40); AST/SGOT 14 U/L (<34); BILIRUBIN,TOTAL 0.5 MG/DL (0.3-1.2); BLOOD UREA NITROGEN 21 MG/DL (9-23); CALCIUM LEVEL 9.2 MG/DL (8.3-10.6); CARBON DIOXIDE LEVEL 27 MMOL/L (20-31); CHLORIDE LEVEL 103 MMOL/L (98-107); CREATININE FOR GFR 0.82 MG/DL (0.70-1.30); GLOMERULAR FILTRATION RATE > 60.0 (>42); GLUCOSE, FASTING 118 MG/DL (74-106); POTASSIUM SERUM 3.7 MMOL/L (3.5-5.1); SODIUM LEVEL 134 MMOL/L (136-145); TOTAL PROTEIN 8.5 G/DL (5.7-8.2)
[2023-12-23 15:51] LABS: TOTAL 25(OH) VITAMIN D 38.7 NG/ML (20.0-100.0)
[2023-12-23 15:52] LABS: FERRITIN 177.2 NG/ML (10.5-307.3)
[2023-12-23 15:53] LABS: PTH INTACT 53.3 PG/ML (18.5-88.0)
== END ==
LOC: M LAB 14:24
PROVIDERS: ATTEND Family Medicine
DX: D50.9 Iron deficiency anemia, unspecified (principal); I50.32 Chronic diastolic (congestive) heart failure; R73.01 Impaired fasting glucose; E55.9 Vitamin D deficiency, unspecified

== ENCOUNTER → 2024-06-16 | Outpatient (CLI) | payer MEDICARE, MEDICAID ==
[2024-06-16 12:26] LABS: BASO % 0.5 % (0.0-1.0); EOS # 0.2 10^3/uL (0.0-0.5); EOS % 2.2 % (0.0-3.0); HEMATOCRIT 32.1 % (42.0-52.0); HEMOGLOBIN 12.9 g/dl (13.5-17.5); LYMPH % 26.6 % (24.0-44.0); MEAN CORPUSCULAR HEMOGLOBIN 37.2 pg (27.0-33.0); MEAN CORPUSCULAR VOLUME 92.5 fl (80.0-96.0); MONO # 0.9 10^3/uL (0.0-0.8); MONO % 11.9 % (2.0-8.0); NEUTROPHILS # 4.4 10^3/uL (1.5-8.5); NEUTROPHILS % 58.4 % (36.0-66.0); PLATELET COUNT, AUTOMATED 175 10^3/uL (150-450); RED BLOOD COUNT 3.47 10^6/uL (4.30-6.10); WHITE BLOOD COUNT 7.6 10^3/uL (4.0-10.0)
[2024-06-16 13:14] LABS: HEMOGLOBIN A1c 4.8 % (4.0-6.0)
[2024-06-16 13:20] LABS: ALBUMIN 3.3 G/DL (3.2-5.2); ALKALINE PHOSPHATASE 89 U/L (40-129); ALT/SGPT 22 U/L (7.0-40); AST/SGOT 17 U/L (<34); BILIRUBIN,TOTAL 0.6 MG/DL (0.3-1.2); BLOOD UREA NITROGEN 21 MG/DL (9-23); CALCIUM LEVEL 8.6 MG/DL (8.3-10.6); CARBON DIOXIDE LEVEL 26 MMOL/L (20-31); CHLORIDE LEVEL 102 MMOL/L (98-107); CREATININE FOR GFR 0.87 MG/DL (0.70-1.30); GLOMERULAR FILTRATION RATE > 60.0 (>42); GLUCOSE, FASTING 145 MG/DL (74-106); POTASSIUM SERUM 4.2 MMOL/L (3.5-5.1); SODIUM LEVEL 135 MMOL/L (136-145); TOTAL PROTEIN 8.1 G/DL (5.7-8.2)
[2024-06-16 13:23] LABS: FERRITIN 148.8 NG/ML (10.5-307.3)
[2024-06-16 13:52] LABS: MEAN CORPUSCULAR HGB CONC 40.2 g/dl (32.0-36.5)
[2024-06-16 15:13] LABS: PLATELET ESTIMATE NORMAL (NORMAL)
== END ==
LOC: M LAB 10:37
PROVIDERS: ATTEND Family Medicine
DX: D50.9 Iron deficiency anemia, unspecified (principal)

== ENCOUNTER → 2024-07-07 | Outpatient (CLI) | payer MEDICARE, MEDICAID ==
[~2024-07-07] MED LIST changes: -FLOM0.4C39 PO; +MORP-137 PO; -MSIR30TA PO; +TAMS-18 PO; -TRIA25CR TOP; +TRIA80CR15 TOP
== END ==
LOC: M RAD 09:59
PROVIDERS: ATTEND Family Medicine
DX: I87.2 Venous insufficiency (chronic) (peripheral) (principal); K74.00 Hepatic fibrosis, unspecified

== ENCOUNTER → 2024-07-19 | Outpatient (REF) | payer MEDICARE, MEDICAID | LOC: M SFHCPLAZ 15:16 | PROVIDERS: ATTEND Family Medicine | DX: I50.32 Chronic diastolic (congestive) heart failure (principal); R73.01 Impaired fasting glucose; D50.9 Iron deficiency anemia, unspecified; K74.00 Hepatic fibrosis, unspecified; E78.2 Mixed hyperlipidemia; Z12.5 Encounter for screening for malignant neoplasm of prostate ==

== ENCOUNTER → 2024-07-19 | Outpatient (CLI) | payer MEDICARE, MEDICAID ==
[2024-07-19 16:12] LABS: BASO % 0.4 % (0.0-1.0); EOS # 0.2 10^3/uL (0.0-0.5); EOS % 3.1 % (0.0-3.0); HEMATOCRIT 37.4 % (42.0-52.0); HEMOGLOBIN 12.9 g/dl (13.5-17.5); LYMPH # 2.3 10^3/uL (1.5-5.0); MEAN CORPUSCULAR HEMOGLOBIN 30.6 pg (27.0-33.0); MEAN CORPUSCULAR HGB CONC 34.5 g/dl (32.0-36.5); MEAN CORPUSCULAR VOLUME 88.6 fl (80.0-96.0); MONO # 1.2 10^3/uL (0.0-0.8); MONO % 15.9 % (2.0-8.0); NEUTROPHILS # 3.6 10^3/uL (1.5-8.5); NEUTROPHILS % 49.3 % (36.0-66.0); PLATELET COUNT, AUTOMATED 185 10^3/uL (150-450); RED BLOOD COUNT 4.22 10^6/uL (4.30-6.10); WHITE BLOOD COUNT 7.4 10^3/uL (4.0-10.0)
[2024-07-19 16:38] LABS: PSA SCREENING 0.21 NG/ML (< 4.00)
[2024-07-19 16:41] LABS: ALBUMIN 3.4 G/DL (3.2-5.2); BILIRUBIN,TOTAL 0.6 MG/DL (0.3-1.2); CALCIUM LEVEL 8.7 MG/DL (8.3-10.6); CHOLESTEROL RISK RATIO 4.52 (<5); CREATININE FOR GFR 0.97 MG/DL (0.70-1.30); GLOMERULAR FILTRATION RATE 83.5 (>42); HDL CHOLESTEROL 27.4 MG/DL (>40); MAGNESIUM LEVEL 1.9 MG/DL (1.8-2.4); NON-HDL-C 96.6 MG/DL; POTASSIUM SERUM 4.3 MMOL/L (3.5-5.1); TOTAL PROTEIN 8.5 G/DL (5.7-8.2)
[2024-07-19 16:42] LABS: THYROID STIMULATING HORMONE 2.195 uIU/ML (0.55-4.78)
[2024-07-19 16:43] LABS: FERRITIN 136.4 NG/ML (10.5-307.3); FREE T4 0.93 NG/DL (0.89-1.76)
[2024-07-19 17:50] LABS: HEMOGLOBIN A1c 5.4 % (4.0-6.0)
== END ==
LOC: M LAB 15:22
PROVIDERS: ATTEND Family Medicine
DX: D50.9 Iron deficiency anemia, unspecified (principal); E78.00 Pure hypercholesterolemia, unspecified; Z12.5 Encounter for screening for malignant neoplasm of prostate
CPT/HCPCS: 36415; 80053; 80061; 81517; 82728; 83036; 83735; 84439; 84443; 85025; G0103

== ENCOUNTER → 2024-07-22 | Outpatient (CLI) | payer MEDICARE, MEDICAID ==
[~2024-07-22] MED LIST changes: +ISOVUE-370 76% 100ML VIAL ONE
== END ==
LOC: M PLAIMG 12:18
PROVIDERS: ATTEND Family Medicine
DX: N28.89 Other specified disorders of kidney and ureter (principal)
CPT/HCPCS: 74178; Q9967

== ENCOUNTER → 2024-09-15 | Outpatient (REF) | payer MEDICARE, MEDICAID ==
[~2024-09-15] MED LIST changes: -ISOVUE-370 76% 100ML VIAL ONE
[2024-09-15 17:56] LABS: APPEARANCE, URINE HAZY (CLEAR); BACTERIA, URINE AUTO 2+ (NEGATIVE); BILIRUBIN, URINE AUTO NEGATIVE (NEGATIVE); BLOOD, URINE BLOOD 3+ (NEGATIVE); GLUCOSE, URINE (UA) AUTO NEGATIVE (NEGATIVE); KETONE, URINE AUTO NEGATIVE (NEGATIVE); LEUKOCYTE ESTERASE, URINE AUTO 3+ (NEGATIVE); MUCUS, URINE SMALL (NEGATIVE); NITRITE, URINE AUTO POSITIVE (NEGATIVE); PROTEIN, URINE AUTO 1+ mg/dL (NEGATIVE); RBC, URINE AUTO TNTC /HPF (0-3); SPECIFIC GRAVITY URINE AUTO 1.020 (1.002-1.035); SQUAMOUS EPITHELIAL CELL UR AU 1 /HPF (0-6); UROBILINOGEN, URINE AUTO 0.2 mg/dL (0.0-2.0); WBC, URINE AUTO 135 /HPF (0-3)
== END ==
LOC: M SFHCPLAZ 16:47
PROVIDERS: ATTEND Student in an Organized Health Care Education/Training Program
DX: R39.89 Other symptoms and signs involving the genitourinary system (principal)